=== PATIENT | female | born 1950 | race Caucasian/White ===

== ENCOUNTER 2017-05-06 10:15 | Day surgery (SDC) | payer MEDICARE, OTHER, SELFPAY ==
[2017-04-30 15:33] VITALS: BMI 21.2
[2017-05-06] VITALS (9 sets, daily range): BP systolic 94–120; BP diastolic 57–69; PULSE 83–105; RESP 18; TEMP 36.1–36.7; O2SAT 97–100
--- NOTE | 2017-05-06 11:00 | P.PN_ITS ---
[facility] Anesthesia Checklist - Patient Identification Patient Identification: Arm Band - Structural Data Admitted From: Home Planned Operative Procedure/s: colonoscopy Consent for Planned Operative Procedure(s) Verified: Yes Verified Documents: Surgical Consent - NPO Status Verified Time NPO: 00:00 - Additional verifications Anesthesia Reactions: Yes (PONV) - Airway Assessment C-Spine Mobility Assessed: Yes TMJ Mobility Assessed: Yes Dentition: Good Dentition - Neurological Assessment Level of Consciousness: Awake, Alert - Anesthesia Plan Anesthesia Risk discussed: Yes Anesthesia Plan: Verified ASA Class: III Anesthesia Type: MAC [facility] Anesthesia HX I have reviewed the patient's past medical history: Yes Medical History: Reports:: Asthma, Gastroesophageal Reflux Disease(GERD), Hyperlipidemia, Hypertension, Lung Disease (sarcoidosis) Denies:: Diabetes Mellitus Type 1, Diabetes Mellitus Type 2, Internal Pacemaker, Seizures Laterality Cases: Right: Mastectomy Other Surgeries: Yes: Cardiac Catheterization, Colon Resection, Hysterectomy- Total. No: Pacemaker
--- NOTE | 2017-05-06 12:29 | P.PCN_ITS ---
[facility] Procedure Note Procedure Note:: Colonoscopy Procedure Report: Colonoscopy Endoscopist: Juan Whitfield II, MD Referring physician: Sergio Ulloa MD Date of Procedure: May 06, 2017 Equipment: Olympus 180 variable stiffness pediatric colonoscope Sedation: MAC sedation Indication: Mrs. Sinha is a 66-year-old female who is here for follow-up screening/surveillance colonoscopy. The patient did have an advanced adenoma with dysplasia requiring right hemicolectomy or resection. This was 4 years ago. Her last colonoscopy was 2.[address] Martin and was normal. She reports no abdominal pain, weight loss, change in her bowel habits or rectal bleeding. She reports no family history of colon cancer. Procedure: Prior to the procedure, a history and physical exam was performed, and patient' s medications and allergies were reviewed. The risks, benefits and alternatives of the sedation and procedure were discussed with the patient. All questions were answered and informed consent was obtained. The patient was brought to the procedure room. Patient identification and proposed procedure were verified by the physician and the nurse. The patient was placed in a left lateral decubitus position and the scope was passed under direct vision. Throughout the procedure, the patient's blood pressure, pulse, and oxygen saturations were monitored continuously. The colonoscopy was accomplished without difficulty. The patient tolerated the procedure well. Findings: On digital rectal examination there was normal rectal tone. There were no external hemorrhoids. The colonoscope was introduced through the anal canal to the rectum and advanced to the anastomosis (ileocolonic anastomosis). The scope was advanced a short distance into the ileum which appeared grossly normal. The scope was then withdrawn into the colon. The remaining ascending and transverse colon and mucosa were grossly normal. There were scattered diverticuli throughout the descending and sigmoid colon (LEFT colon). The rectum itself was normal. Upon retroflexion within the rectum there were grade 1 internal hemorrhoids. Impression: 1. Mild pandiverticulosis 2. Normal-appearing anastomosis 3. Grade 1 internal hemorrhoids Plan: I will recommend repeat screening/surveillance colonoscopy again in 5 years. I would encourage fiber supplementation on a long-term daily maintenance basis.
== END 2017-05-06 13:30 | disposition home or self-care (01) ==
LOC: OUTP 10:16
PROVIDERS: PCP Family Medicine; Visit Provider Internal Medicine Gastroenterology
PROC: 0DJD8ZZ Inspection of Lower Intestinal Tract, Via Natural or Artificial Opening Endoscopic (ICD-10-PCS; CPT 45378; principal; 2017-05-06 11:30)
DX: Z12.11 Encounter for screening for malignant neoplasm of colon (principal); K57.30 Diverticulosis of large intestine without perforation or abscess without bleeding; K64.0 First degree hemorrhoids
CPT/HCPCS: G0121

== ENCOUNTER → 2017-06-05 13:02 | Outpatient (POV) | payer MEDICARE, OTHER, SELFPAY | PROVIDERS: PCP Family Medicine | DX: Z00.00 Encounter for general adult medical examination without abnormal findings (principal) ==

== ENCOUNTER → 2017-10-03 08:08 | Outpatient (CLI) | payer MEDICARE, OTHER, SELFPAY ==
--- NOTE | 2017-10-03 12:19 | MM_ITS ---
MM Dig SC mamm unilat LT CAD CAD Screening COMPARISON: Digital left mammogram with CAD 09/08/2015 and 09/10/2016 INDICATION: There is been previous right mastectomy. There is a history of breast cancer patient's mother diagnosed in her 80s. TECHNIQUE: Standard CC and MLO images were obtained. R2 CAD reviewed. FINDINGS: Mild to moderate fibroglandular densities are seen in the subareolar region and central portion of the breast. There is a benign-appearing calcification noted. There is no suspicious lesion and there are no suspicious microcalcifications. IMPRESSION: Stable exam with no suspicious lesion seen recommend yearly follow-up BI-RADS Category: 2 Benign Finding(s) RECOMMENDED FOLLOW-UP: 1YR - 1 YEAR FOLLOW-UP (A letter has been sent to the patient regarding results of the study.)
== END ==
PROVIDERS: PCP Family Medicine; Visit Provider Family Medicine
DX: Z12.31 Encounter for screening mammogram for malignant neoplasm of breast (principal)
CPT/HCPCS: 77067

== ENCOUNTER → 2018-01-29 14:11 | Outpatient (POV) | payer MEDICARE, OTHER, SELFPAY | DX: Z00.00 Encounter for general adult medical examination without abnormal findings (principal) ==

== ENCOUNTER → 2018-05-14 14:00 | Outpatient (POV) | payer MEDICARE, OTHER, SELFPAY | DX: Z00.00 Encounter for general adult medical examination without abnormal findings (principal) ==

== ENCOUNTER 2018-07-21 13:06 | Outpatient (RCR) | payer MEDICARE, OTHER, SELFPAY | END 2018-09-26 13:14 | disposition home or self-care (01) | LOC: PULREHAB 13:06 | DX: D86.9 Sarcoidosis, unspecified (principal) | CPT/HCPCS: 93798; G0237; G0238; G0239; G0424 ==

== ENCOUNTER → 2018-08-22 09:33 | Outpatient (CLI) | payer MEDICARE, OTHER, SELFPAY ==
[2018-08-22 10:00] VITALS: BP 130/75; BP 136/73; PULSE 103; PULSE 73; RESP 20; RESP 24; O2SAT 93; O2SAT 97
== END ==
PROVIDERS: PCP Family Medicine; Visit Provider Family Medicine
DX: D86.0 Sarcoidosis of lung (principal); R09.02 Hypoxemia
CPT/HCPCS: 94618

== ENCOUNTER → 2018-11-11 10:13 | Outpatient (CLI) | payer MEDICARE, OTHER, SELFPAY ==
--- NOTE | 2018-11-11 10:16 | MM_ITS ---
PROCEDURE: MM DIG SC MAMM UNILAT LT CAD CLINICAL INDICATION: H/O RT BREAST CANCER, SCREENING LT BREAST there is a history of breast cancer in patient's mother diagnosed after menopause. There has been previous right mastectomy and breast reduction surgery left breast COMPARISON: [facility] DIG MAMM-SCREENING UNI-LT from 09/08/2015 [facility] DIG MAMM-SCREEN UNI-LT W/CAD from 09/10/2016 [facility] MM Dig SC mamm unilat LT CAD from 10/03/2017 TECHNIQUE: Standard CC and MLO images were obtained. R2 CAD reviewed. FINDINGS: Moderate fibroglandular densities are seen in the subareolar region of the breasts unchanged from previous exams. There is a benign-appearing calcification again noted. There is no new or suspicious lesion on the no suspicious microcalcifications. IMPRESSION: Stable exam with no suspicious lesions seen BI-RAD Category: 1 Negative FOLLOW-UP: 1YR 1 Year Follow-up (A letter has been sent to the patient regarding results of the study.) Dictated by: Dr. Kevyn Wolff MD 12/03/2018 08:[address] Kevyn Wolff MD in [place] 12/03/2018 08:50
--- NOTE | 2018-11-11 10:17 | XR_ITS ---
PROCEDURE: XR DEXA AXIAL SKELETON CLINICAL HISTORY: POST MENOPAUSAL COMPARISON: No exams were available for comparison TECHNIQUE: FINDINGS: The L1-L4 density has a bone density 1.203 grams/centimeters sq with a T-score of 0.2. Left femoral neck density is 0.798 grams/centimeters sq with T-score -1.7. IMPRESSION: Osteopenia with moderate fracture risk. Treatment advised. Suggest follow-up exam in 2 years Dictated by: Newton Knox MD 11/11/2018 11:02 Signed by: <Electronically signed by Newton Knox MD in [place]> 11/11/2018 11:02
== END ==
PROVIDERS: PCP Family Medicine; Visit Provider Family Medicine
DX: Z78.0 Asymptomatic menopausal state; Z85.3 Personal history of malignant neoplasm of breast; Z12.31 Encounter for screening mammogram for malignant neoplasm of breast
CPT/HCPCS: 77067; 77080

== ENCOUNTER → 2019-01-28 13:24 | Outpatient (POV) | payer MEDICARE, OTHER, SELFPAY | DX: Z00.00 Encounter for general adult medical examination without abnormal findings (principal) ==

== ENCOUNTER → 2019-02-19 08:03 | Outpatient (CLI) | payer MEDICARE, OTHER, SELFPAY ==
--- NOTE | 2019-02-19 08:05 | US_ITS ---
PROCEDURE: US ABDOMEN LIMITED CLINICAL INDICATION: EPIGASTRIC PAIN Belching, fullness [facility] FINDINGS: PANCREAS: Unremarkable. No obvious mass or abnormal fluid collection. No ductal dilatation LIVER: No focal liver lesions demonstrated. Homogeneous echogenicity. No intrahepatic biliary ductal dilatation evident. There is appropriate direction of blood flow within a non dilated portal vein RIGHT KIDNEY: There is increased echogenicity in the lower pole of the right kidney with posterior acoustical shadowing suggesting a renal stone. No hydronephrosis. There is mild cortical thinning GALLBLADDER: No gallstones, gallbladder wall thickening, pericholecystic fluid, or biliary dilatation. Probable small right pleural effusion. IMPRESSION: 1. Suspect small right pleural effusion. 2. Possible right nephrolithiasis. 3. Unremarkable gallbladder Dictated by: Newton Knox MD 02/19/2019 17:53 Electronically signed by Newton Knox MD in [place] 02/19/2019 17:53
--- NOTE | 2019-02-19 08:05 | FL_ITS ---
PROCEDURE: FL UPPER GI W AIR CLINICAL INDICATION: EPIGASTRIC PAIN COMPARISON: [facility] CT CHEST W/WO CONTRAST from 01/11/2017 TECHNIQUE: FLUOROSCOPY TIME : 1 minutes and 37 seconds FINDINGS: Small to medium-sized hiatal hernia is noted. No ulcer or mass is apparent. The upper esophagus is slightly situated toward the right and could be related to some scarring in the right upper lobe with mediastinal shift in this patient with history of sarcoidosis and pulmonary fibrosis IMPRESSION: Small to medium-sized hiatal hernia Mild deviation of the esophagus toward the right. This did have a similar appearance on a CT scan 01/11/2017 Dictated by: Newton Knox MD 02/19/2019 14:56 Electronically signed by Newton Knox MD in [place] 02/19/2019 14:56
== END ==
PROVIDERS: PCP Family Medicine; Visit Provider Family Medicine
DX: R10.13 Epigastric pain (principal)
CPT/HCPCS: 74247; 76705

== ENCOUNTER → 2019-02-25 10:20 | Outpatient (CLI) | payer MEDICARE, OTHER, SELFPAY ==
--- NOTE | 2019-02-25 10:29 | NM_ITS ---
PROCEDURE: NM HEPATOBILIARY W PHARM CLINICAL INDICATION: EPIGASTRIC PAIN COMPARISON: No exams were available for comparison TECHNIQUE: DOSE: 7.63 mCi technetium Choletec. 1.1 mcg CCK. No pain reported with CCK infusion FINDINGS: Homogeneous activity is present within the hepatic parenchyma. Activity is present in the gallbladder by 10 minutes. Activity is present in the small bowel by 30 minutes. The gallbladder ejection fraction is calculated to be 85 percent. CCK-The patient did not report pain or other symptoms during CCK infusion. IMPRESSION: Unremarkable exam. No evidence of common or cystic duct obstruction with normal gallbladder ejection Dictated by: Newton Knox MD 02/25/2019 19:09 Electronically signed by Newton Knox MD in [place] 02/25/2019 19:09
== END ==
PROVIDERS: PCP Family Medicine; Visit Provider Family Medicine
DX: R10.13 Epigastric pain (principal)
CPT/HCPCS: 78227; A9537; J2805

== ENCOUNTER 2019-02-27 06:40 | Inpatient (IN) ==
--- NOTE | 2019-02-27 07:40 | History & Physical Report ---
*Admission Date: 02/27/19 *Chief complaint: Shortness of breath *History of present illness: 68-year-old female presented to the emergency department for the third time in a week this morning although this time her complaint was different. Her previous 2 complaints had been loss of appetite. Today she presented with shortness of breath and chills that had developed yesterday evening and had progressed through the night. Patient does not believe she has had fevers. Patient was actually scheduled for an EGD this morning for work-up of her nausea. In the emergency department patient's white blood cell count was low and a chest x-ray showed chronic changes consistent with fibrosis from her pulmonary sarcoidosis but a right lower lobe infiltrate. As patient was in-house and in the preop area awaiting her EGD I assessed the patient there. Patient was tachypneic with a respiratory rate in the mid 20s, pulse rate in the 130s, O2 sat of 88% on room air with an increased to 93 to 94% with application of 2 L/min of oxygen via nasal cannula. Patient had rales in the right lower lung best heard laterally. Cough was dry. Decision was made to admit the patient for IV antibiotics. EGD will be canceled and possibly reattempted on Saturday. [facility] History I have reviewed the patient's past medical history: Yes Medical History: Reports:: Asthma, Cancer (Right mastectomy), Gastroesophageal Reflux Disease(GERD), Hyperlipidemia, Hypertension, Lung Disease (Sarcoidosis with pulmonary fibrosis), Kidney Stones Denies:: Diabetes Mellitus Type 1, Diabetes Mellitus Type 2, Internal Pacemaker, MRSA, Seizures *Have you ever received a pneumonia vaccine?: Yes *Have you received a flu vaccine this season?: Yes Laterality Cases: Right: Mastectomy, Bilateral: Tonsillectomy Other Surgeries: Yes: Appendectomy, Cardiac Catheterization, Colonoscopy, Colon Resection, Hysterectomy-Total, Other. No: Pacemaker Amputation: No Fractures: No - *Social History Educational Level: Completed High School Smoking Status: Never smoker Alcohol Intake: never Alcohol Intake Frequency:: holidays/special occasions only Substance Use Type: denies use *Occupational Status:: retired Housing: house Household Members: spouse *Travel in the last 8 weeks: None Family Hx:: Unable to obtain Review of Systems - Constitutional Reports anorexia, Reports body ache(s), Reports chills, Reports fatigue, Reports headache(s), Reports malaise, Reports weakness, Reports weight loss, Denies fever(s) - *Cardiovascular Denies chest pain, Denies chest pain at rest, Denies chest pain with activity - *Respiratory Reports chest congestion, Reports cough, Reports shortness of breath, Denies change in phlegm color - *Gastrointestinal Reports abdominal pain, Reports difficulty swallowing, Reports nausea - *Genitourinary Denies abnormal periods Meds Home Medications Medication Instructions Recorded Confirmed Type Albuterol Sulfate [Proair Hfa 2 puffs IH Q4HP PRN 04/30/17 02/27/19 History 90mcg/puff Inh] Amlodipine Besylate [Amlodipine 10 mg PO DAILY 04/30/17 02/27/19 History 10mg Tab] Atorvastatin Calcium [Atorvastatin 20 mg PO DAILY 04/30/17 02/27/19 History 20mg Tab] Montelukast Sodium [Montelukast 10 mg PO HS 04/30/17 02/27/19 History 10mg Tab] Omeprazole [Omeprazole 20mg 20 mg PO DAILY 04/30/17 02/27/19 History Capsule] buspirone 10 mg tablet 10 mg PO BID PRN 08/27/17 02/27/19 History calcium citrate 200 mg (950 mg) 600 mg PO BID tab 08/27/17 02/27/19 History tablet alendronate 70 mg tablet 70 mg PO QWEEK 84 Days #12 tab 02/25/18 02/27/19 History azathioprine 50 mg tablet 50 mg PO BID 30 Days #60 tab 02/25/18 02/27/19 History Ondansetron [Zofran 4mg ODT] 4 mg PO TIDP PRN #10 tab.rapdis 02/26/19 02/27/19 Rx Allergies Allergy/AdvReac Type Severity Reaction Status Date / Time No Known Allergies Allergy Verified 02/27/19 07:07 Exam Vital signs and Labs for Last 24 Hours: Temp Pulse Resp BP Pulse Ox 99.2 F 126 H 24 119/58 L 94 L 02/27/19 07:08 02/27/19 07:08 02/27/19 07:08 02/27/19 07:08 02/27/19 07:08 I & O for Last 24 hours: Intake & Output 12/10/02/25/19 02/26/19 02/27/19 11:59 11:59 11:59 11:59 Weight 125 lb Narrative: Patient shows increased respiratory effort. She is thin. Pupils are reactive to light. Oropharynx is moist. Neck is without lymphadenopathy or carotid bruits. Lungs have diminished breath sounds throughout with rales at the right posterior lateral lung base. Heart is tachycardic. Abdomen is soft and nontender. Bowel sounds are present. Extremities have no edema. Neurologically there is no deficit. Skin is without rashes. Assessment and Plan (1) Right lower lobe pneumonia Current visit: Yes Status: Acute Category: Medical Code(s): J18.9 - Pneumonia, unspecified organism (2) Hyperlipidemia Current visit: Yes Status: Acute Category: Medical Code(s): E78.5 - Hyperlipidemia, unspecified (3) Pulmonary fibrosis Current visit: Yes Status: Chronic Category: Medical Code(s): J84.10 - Pulmonary fibrosis, unspecified (4) Abdominal pain Current visit: No Status: Acute Qualifiers: Abdominal location: right upper quadrant Qualified Code(s): R10.11 - Right upper quadrant pain Category: Medical Code(s): R10.9 - Unspecified abdominal pain (5) Appetite loss Current visit: No Status: Acute Category: Medical Code(s): R63.0 - Anorexia (6) Nausea Current visit: No Status: Acute Category: Medical Code(s): R11.0 - Nausea (7) Sarcoidosis Current visit: No Status: Chronic Category: Medical Code(s): D86.9 - Sarcoidosis, unspecified
--- NOTE | 2019-02-27 07:56 | Pharmacy Consult Notes ---
[facility] Pharmacy VTE Monitoring - Patient Demographics Admission date: 02/27/19 Report Date: 02/27/19 Time: 07:56 Allergies/Adverse Reactions: Patient Allergies No Known Allergies Allergy (Verified 02/27/19 07:07) Height: 1.6 m Weight: 56.699 kg Patient Problems: Current Active Problems Right lower lobe pneumonia (Acute) Hyperlipidemia (Acute) Pulmonary fibrosis (Chronic) - Prophylaxis VTE Prophylaxis Ordered?: Yes Types of VTE Prophylaxis: TEDS Knee High Location of Applied Device: Bilateral Lower Extremeties - VTE Diagnosis Confirmed Treatment or plan recommended: Continue Current Treatment
[2019-02-27 08:37] LABS: ABG Base Excess -9.5 mmol/L (-2.4-2.3); ABG HCO3 17.2 mmhg (22.0-26.0); ABG Oxygen Saturation 96 % (90-100); ABG PCO2 37.1 mmhg (35.0-45.0); ABG PH 7.28 mmol/L (7.35-7.45); ABG PO2 83.7 mmhg (80-100); ABG TCO2 18.3 mmhg (23-27)
[2019-02-27 08:40] LABS: Oxygen 2LPM %
--- NOTE | 2019-02-28 07:20 | Progress Note ---
Internal Medicine - PN: Subj *Date: 02/28/19 *Time: 07:17 Interval history: Patient had a low-grade fever overnight that responded to Tylenol. Nursing staff reports patient did well except for when ambulating to and from the bathroom. At that point O2 sats dropped into the mid 80s. Sats recovered as did patient's breathlessness when she was at rest again. Respiratory therapy has told me this morning that the patient has a wheezing sound coming from the central upper airway that has not changed with use of aerosols. Exam Vital signs and Labs for Last 24 Hours: Temp Pulse Resp BP Pulse Ox 97.7 F 106 H 20 112/58 L 97 02/28/19 04:00 02/28/19 06:20 02/28/19 04:00 02/28/19 04:00 02/28/19 06:20 Laboratory Results - last 24 hr 02/27/19 07:30: Specimen Source L brachial, O2 % 2lpm, ABG pH 7.28 L, ABG pCO2 37.1, ABG pO2 83.7, ABG HCO3 17.2 L, ABG Total CO2 18.3 L, ABG O2 Saturation 96, ABG Base Excess -9.5 L 02/27/19 09:45: Mycoplasma pneumon IgM Reactive A 02/27/19 10:30: Influenza Type A Ag Negative, Influenza Type B Ag Negative I & O for Last 24 hours: Intake & Output 02/25/19 02/26/19 02/27/19 02/28/19 11:59 11:59 11:59 11:59 Intake Total 120 / 120 2492 / 2492 Output Total 800 / 800 Balance 120 / 120 1692 / 1692 Weight 130 lb 9 oz Microbiology Reports for the Last 24 Hours: Microbiology 02/27/19 18:35 Sputum - Expectorated Sputum Gram Stain - Final - Constitutional Comments: Patient is tachypneic and requires frequent reminder to inhale through her nose and exhale through pursed lips. - *Routine Respiratory Exam Comments: There is poor inspiratory effort and rales in the right base. No expiratory wheezes peripherally. Patient has some central wheezing that clears with cough or clearing of the throat - *Routine Cardiovascular Exam Present: Normal S1, Normal S2, tachycardia - *Routine Abdominal Exam Present: soft, normoactive bowel sounds Assessment and Plan (1) Right lower lobe pneumonia Current visit: Yes Status: Acute Category: Medical Code(s): J18.9 - Pneumonia, unspecified organism (2) Hyperlipidemia Current visit: Yes Status: Acute Category: Medical Code(s): E78.5 - Hyperlipidemia, unspecified (3) Pulmonary fibrosis Current visit: Yes Status: Chronic Category: Medical Code(s): J84.10 - Pulmonary fibrosis, unspecified (4) Abdominal pain Current visit: No Status: Acute Qualifiers: Abdominal location: right upper quadrant Qualified Code(s): R10.11 - Right upper quadrant pain Category: Medical Code(s): R10.9 - Unspecified abdominal pain (5) Appetite loss Current visit: No Status: Acute Category: Medical Code(s): R63.0 - Anorexia (6) Nausea Current visit: No Status: Acute Category: Medical Code(s): R11.0 - Nausea (7) Sarcoidosis Current visit: No Status: Chronic Category: Medical Code(s): D86.9 - Sarcoidosis, unspecified - Assessment and plan all Dx Assessment and Plan for all problems:: 1. CT of the chest with and without contrast today 2. I am going to add some steroids to see if that helps with patient's pneumonia. 3. Supplemental oxygen for comfort and to keep sats in the mid 90s
[2019-02-28 07:50] LABS: Basophils # 0.1 K/mm3 (0-0.2); Basophils % 1.1 % (0.1-2.0); Eosinophils # 0.1 K/mm3 (0.0-0.4); Eosinophils % 2.3 % (0.1-12.0); Hematocrit 38.8 % (37.0-47.0); Hemoglobin 12.7 g/dL (12.2-16.2); Lymphocytes # 0.5 K/mm3 (0.7-4.5); Lymphocytes % 11.4 % (10-50); Mean Corpuscular HGB Conc 32.6 g/dL (31.8-35.4); Mean Corpuscular Volume 90.9 fl (81-99); Mean Platelet Volume 9.3 fl (7.4-10.4); Monocytes # 0.8 K/mm3 (0.1-1.0); Monocytes % 17.2 % (1.7-9.3); Platelet Count 362 K/mm3 (142-424); Red Blood Count 4.27 M/mm3 (4.20-5.40); Red Cell Distribution Width 13.9 % (11.5-17.5); White Blood Count 4.4 K/mm3 (4.8-10.8)
[2019-02-28 09:47] LABS: Albumin Level 2.7 gm/dL (3.4-5.0); Albumin/Globulin Ratio 0.7 (1.1-1.8); Bilirubin,Total 0.4 mg/dL (0.2-1.0); Calcium 7.4 mg/dL (8.5-10.1); Globulin 3.7 gm/dl (1.3-3.2); Total Protein,Serum 6.4 gm/dL (6.4-8.2)
--- NOTE | 2019-03-01 08:19 | Progress Note ---
Internal Medicine - PN: Subj *Date: 03/01/19 *Time: 08:15 Interval history: Patient reports feeling better this morning. Shortness of breath is improving. Cough feels "looser" but she has not produced any sputum yet. CT scan of the chest yesterday showed multiple patchy infiltrates throughout the right lung, a right pleural effusion, and the chronic fibrotic changes of the lungs from her sarcoidosis. Exam Vital signs and Labs for Last 24 Hours: Temp Pulse Resp BP Pulse Ox 97.7 F 100 H 18 132/78 96 03/01/19 04:00 03/01/19 06:14 03/01/19 04:00 03/01/19 04:00 03/01/19 06:14 Laboratory Results - last 24 hr 02/28/19 07:10: Sodium 142, Potassium 4.0, Chloride 107, Carbon Dioxide 23 D, Anion Gap 16.0 H, BUN 7 D, Creatinine 0.81 D, Estimated Creat Clear 52, Estimated GFR 71, Est GFR ( Amer) 86 D, Glucose 125 H, Calcium 7.4 L, Total Bilirubin 0.4, AST 33, ALT 18, Alkaline Phosphatase 97, Total Protein 6.4, Albumin 2.7 L D, Globulin 3.7 H, Albumin/Globulin Ratio 0.7 L 02/28/19 10:00: B-Natriuretic Peptide 55 I & O for Last 24 hours: Intake & Output 02/26/19 02/27/19 02/28/19 03/01/19 11:59 11:59 11:59 11:59 Intake Total 120 / 120 2612 / 2612 2844 / 2844 Output Total 800 / 800 2049 / 2049 Balance 120 / 120 1812 / 1812 794 / 794 Weight 130 lb 9 oz 131 lb 9 oz Narrative: Patient appears much more comfortable this morning with normal respirations and no increased work of breathing. Lung exam reveals improved aeration on the right with rales heard in the lateral and posterior chest on the right. Heart has a regular rate and rhythm Assessment and Plan (1) Right lower lobe pneumonia Current visit: Yes Status: Acute Category: Medical Code(s): J18.9 - Pneumonia, unspecified organism (2) Hyperlipidemia Current visit: Yes Status: Acute Category: Medical Code(s): E78.5 - Hyperlipidemia, unspecified (3) Pulmonary fibrosis Current visit: Yes Status: Chronic Category: Medical Code(s): J84.10 - Pulmonary fibrosis, unspecified (4) Abdominal pain Current visit: No Status: Acute Qualifiers: Abdominal location: right upper quadrant Qualified Code(s): R10.11 - Right upper quadrant pain Category: Medical Code(s): R10.9 - Unspecified abdominal pain (5) Appetite loss Current visit: No Status: Acute Category: Medical Code(s): R63.0 - Anorexia (6) Nausea Current visit: No Status: Acute Category: Medical Code(s): R11.0 - Nausea (7) Sarcoidosis Current visit: No Status: Chronic Category: Medical Code(s): D86.9 - Sarcoidosis, unspecified - Assessment and plan all Dx Assessment and Plan for all problems:: 1. Continue Rocephin and azithromyciN. Continue IV steroids. Patient has no wheezing so I will make her breathing treatments as needed 2. Encourage patient to ambulate today
--- NOTE | 2019-03-02 07:27 | Progress Note ---
Internal Medicine - PN: Subj *Date: 03/02/19 *Time: 07:25 Interval history: Patient feels better with improvement in her shortness of breath and cough continues to loosen. However she is still not producing sputum. Nursing staff reports patient asked for Phenergan for nausea overnight and she did develop some air hunger with ambulation to and from the bathroom requiring some morphine. Patient has been n.p.o. since midnight for GI evaluation. Exam Vital signs and Labs for Last 24 Hours: Temp Pulse Resp BP Pulse Ox 97.8 F 88 20 127/76 96 03/02/19 00:00 03/02/19 06:18 03/02/19 00:00 03/02/19 00:00 03/02/19 06:18 I & O for Last 24 hours: Intake & Output 02/27/19 02/28/19 03/01/19 03/02/19 11:59 11:59 11:59 11:59 Intake Total 120 / 120 2612 / 2612 3084 / 3084 1983 / 1983 Output Total 800 / 800 2049 / 0 1550 / 1550 Balance 120 / 120 1812 / 1812 1034 / 1034 434 / 434 Weight 130 lb 9 oz 131 lb 9 oz Microbiology Reports for the Last 24 Hours: Microbiology 02/27/19 09:45 Blood Blood Culture - Preliminary NO GROWTH AFTER 48 HOURS 02/27/19 09:45 Blood Blood Culture - Preliminary NO GROWTH AFTER 48 HOURS Narrative: Patient appears comfortable. On exam she has rhonchi in the right chest heard best anteriorly but audible posteriorly as well. Left lung is clear. Abdomen is soft and nontender. Heart has a regular rate and rhythm. Assessment and Plan (1) Right lower lobe pneumonia Current visit: Yes Status: Acute Category: Medical Code(s): J18.9 - Pneumonia, unspecified organism (2) Hyperlipidemia Current visit: Yes Status: Acute Category: Medical Code(s): E78.5 - Hyperlipidemia, unspecified (3) Pulmonary fibrosis Current visit: Yes Status: Chronic Category: Medical Code(s): J84.10 - Pulmonary fibrosis, unspecified (4) Abdominal pain Current visit: No Status: Acute Qualifiers: Abdominal location: right upper quadrant Qualified Code(s): R10.11 - Right upper quadrant pain Category: Medical Code(s): R10.9 - Unspecified abdominal pain (5) Appetite loss Current visit: No Status: Acute Category: Medical Code(s): R63.0 - Anorexia (6) Nausea Current visit: No Status: Acute Category: Medical Code(s): R11.0 - Nausea (7) Sarcoidosis Current visit: No Status: Chronic Category: Medical Code(s): D86.9 - Sarcoidosis, unspecified - Assessment and plan all Dx Assessment and Plan for all problems:: 1. Continue IV antibiotics 2. PT and OT eval's today 3. Dr. Whitfield is been consulted for evaluation of her anorexia and epigastric abdominal pain. Patient has had a negative gallbladder work-up.
--- NOTE | 2019-03-02 09:00 | Progress Note ---
Internal Medicine - PN: Subj *Date: 03/02/19 *Time: 09:00 Exam Vital signs and Labs for Last 24 Hours: Temp Pulse Resp BP Pulse Ox 97.8 F 85 20 124/68 97 03/02/19 08:00 03/02/19 08:00 03/02/19 08:00 03/02/19 08:00 03/02/19 08:00 I & O for Last 24 hours: Intake & Output 02/27/19 02/28/19 03/01/19 03/02/19 23:59 23:59 23:59 23:59 Intake Total 1277 / 1277 3484 / 3484 3039 / 3039 400 / 400 Output Total 1900 / 1900 2250 / 2250 550 / 550 Balance 1277 / 1077 1584 / 1584 789 / 789 -150 / -150 Weight 59.222 kg 59.676 kg 59.988 kg Microbiology Reports for the Last 24 Hours: Microbiology 02/27/19 09:45 Blood Blood Culture - Preliminary NO GROWTH AFTER 48 HOURS 02/27/19 09:45 Blood Blood Culture - Preliminary NO GROWTH AFTER 48 HOURS Assessment and Plan (1) Right lower lobe pneumonia Current visit: Yes Status: Acute Category: Medical Code(s): J18.9 - Pneumonia, unspecified organism (2) Hyperlipidemia Current visit: Yes Status: Acute Category: Medical Code(s): E78.5 - Hyperlipidemia, unspecified (3) Pulmonary fibrosis Current visit: Yes Status: Chronic Category: Medical Code(s): J84.10 - Pulmonary fibrosis, unspecified (4) Abdominal pain Current visit: No Status: Acute Qualifiers: Abdominal location: right upper quadrant Qualified Code(s): R10.11 - Right upper quadrant pain Category: Medical Code(s): R10.9 - Unspecified abdominal pain (5) Appetite loss Current visit: No Status: Acute Category: Medical Code(s): R63.0 - Anorexia (6) Nausea Current visit: No Status: Acute Category: Medical Code(s): R11.0 - Nausea (7) Sarcoidosis Current visit: No Status: Chronic Category: Medical Code(s): D86.9 - Sarcoidosis, unspecified The patient's infection will respond to the chosen ABx?: Yes Is the patient receiving the right drug, dose, and route?: Yes Could a more targeted ABx be ordered?: No (SPUTUM PENDING. BLOOD CX NEGATIVE)
--- NOTE | 2019-03-02 10:49 | Progress Note ---
[facility] Anesthesia Checklist - Patient Identification Patient Identification: Arm Band - Structural Data Admitted From: Inpatient Planned Operative Procedure/s: egd Consent for Planned Operative Procedure(s) Verified: Yes Verified Documents: Surgical Consent, History and Physical - NPO Status Verified Time NPO: 00:00 - Additional verifications Anesthesia Reactions: Yes (PONV) - Airway Assessment C-Spine Mobility Assessed: Yes (mp2) TMJ Mobility Assessed: Yes Dentition: Good Dentition - Neurological Assessment Level of Consciousness: Awake, Alert - Anesthesia Plan Anesthesia Risk discussed: Yes Anesthesia Plan: Verified ASA Class: III Anesthesia Type: MAC [facility] History I have reviewed the patient's past medical history: Yes Medical History: Reports:: Asthma, Cancer (Right mastectomy), Gastroesophageal Reflux Disease(GERD), Hyperlipidemia, Hypertension, Lung Disease (Sarcoidosis with pulmonary fibrosis), Kidney Stones Denies:: Diabetes Mellitus Type 1, Diabetes Mellitus Type 2, Internal Pacemaker, MRSA, Seizures *Have you ever received a pneumonia vaccine?: Yes *Have you received a flu vaccine this season?: Yes Anesthesia experience/problems:: nac Laterality Cases: Right: Mastectomy, Bilateral: Tonsillectomy Other Surgeries: Yes: Appendectomy, Cardiac Catheterization, Colonoscopy, Colon Resection, Hysterectomy-Total, Other. No: Pacemaker Amputation: No Fractures: No - *Social History Educational Level: Completed High School Smoking Status: Never smoker Alcohol Intake: never Alcohol Intake Frequency:: holidays/special occasions only Substance Use Type: denies use *Occupational Status:: retired Housing: house Household Members: spouse *Travel in the last 8 weeks: None Family Hx:: Hyperlipidemia, Hypertension, Kidney Disease, Stroke
--- NOTE | 2019-03-02 11:43 | Procedure Note ---
[facility] Procedure Note Procedure Note:: Upper Endoscopy Procedure Report: Esophagogastroduodenoscopy with cold biopsies Endoscopost: Juan Whitfield II, MD Referring Physician: Sergio Ulloa MD Date of Procedure: March 02, 2019 Equipment: Olympus GIF 180 standard upper endoscope Sedation: MAC sedation Indications: Mrs. Sinha is a 68-year-old female with anorexia and no appetite. She has had some belching, gassiness and minor bloating. She reports early satiety. She is lost 9 pounds. The patient does have a history of pulmonary sarcoidosis with pulmonary fibrosis. She was admitted with right lower lobe infiltrate/pneumonia. The patient has had CT scan of the abdomen and chest, ultrasound and HIDA scan. She also had an upper GI series on February 19, 2019 and had a small to medium sized hiatal hernia. The patient initially had some right upper quadrant pain radiating into the back. She has had some light- colored stools and minor heartburn. The patient had been on Remicade and azathioprine for her sarcoidosis. The patient has a history of a right hemicolectomy after resection of an advanced adenoma. She did have a colonoscopy with me in April 2017 and had a normal anastomosis. She has had a low-grade temperature. The patient also has had some elevation of her liver chemistries initially but these have returned to normal. She is not anemic and has normal hemoglobin/hematocrit and white blood cell count. The patient has no abdominal pain. Procedure: Prior to the procedure, a history and physical exam was performed, and patient's medications and allergies were reviewed. The risks, benefits and alternatives of the sedation and procedure were discussed with the patient. All questions were answered and informed consent was obtained. The patient was brought to the procedure room. Patient identification and proposed procedure were verified by the physician and the nurse. The patient was placed in a left lateral decubitus position and the scope was passed under direct vision. Throughout the procedure, the patient's blood pressure, pulse, and oxygen saturations were monitored continuously. The upper GI endoscopy was accomplished without difficulty. The patient tolerated the procedure well. Findings: The scope was passed directly into the upper esophagus and advanced to the third portion of the duodenum. The post bulbar duodenum and duodenal bulb were normal with normal mucosa and conniventes. The scope was withdrawn through a normal duodenal bulb and pylorus into the stomach. There was a very mild linear reactive gastropathy with bile reflux. The remainder of the antrum, body and fundus of the stomach were grossly normal. Upon retroflexion there was a medium sized 3 cm hiatal hernia. 2 biopsies were taken in the antrum and along the lesser curvature for histology to rule out gastritis and/or H pylori. The scope was then withdrawn into the esophagus. There was no evidence of reflux esophagitis or Carrasquillo's. There was mild tertiary contractions and mild dysmotility. The remainder of the esophageal mucosa was normal. Impression: 1. Nonerosive GERD with mild esophageal dysmotility and small 3 cm hiatal hernia 2. Very mild linear reactive gastropathy with bile reflux Plan: I will discuss the findings with patient and family. I will follow-up the biopsies. We will discuss treatment options.
--- NOTE | 2019-03-03 07:06 | Progress Note ---
Internal Medicine - PN: Subj *Date: 03/03/19 *Time: 07:04 Interval history: Patient complains of frequent bowel movements that are loose and believes it is due to the azithromycin. She denies abdominal pain. She had EGD yesterday which showed some bowel reflux gastropathy. Biopsies were taken. Patient has been placed on a bowel regimen by Dr. Whitfield. Patient reports feeling better. Cough is loosening. Exam Vital signs and Labs for Last 24 Hours: Temp Pulse Resp BP Pulse Ox 97.8 F 87 20 138/70 94 L 03/03/19 04:00 03/03/19 06:04 03/03/19 04:00 03/03/19 04:00 03/03/19 06:04 I & O for Last 24 hours: Intake & Output 02/28/19 03/01/19 03/02/19 03/03/19 11:59 11:59 11:59 11:59 Intake Total 2612 / 2612 3084 / 3084 2384 / 2384 209 / 2094 Output Total 800 / 800 2049 / 2049 2350 / 2350 1999 / 1999 Balance 1812 / 1812 1034 / 1034 34 / 34 94 / 94 Weight 131 lb 9 oz 132 lb 4 oz 130 lb 8 oz Narrative: Patient looks well and shows no signs of respiratory distress. Lung exam reveals improved aeration with scattered rhonchi both right and left-sided. Rhonchi on right are less audible than on previous exams Assessment and Plan (1) Right lower lobe pneumonia Current visit: Yes Status: Acute Category: Medical Code(s): J18.9 - Pneumonia, unspecified organism (2) Hyperlipidemia Current visit: Yes Status: Acute Category: Medical Code(s): E78.5 - Hyperlipidemia, unspecified (3) Pulmonary fibrosis Current visit: Yes Status: Chronic Category: Medical Code(s): J84.10 - Pulmonary fibrosis, unspecified (4) Abdominal pain Current visit: No Status: Acute Qualifiers: Abdominal location: right upper quadrant Qualified Code(s): R10.11 - Right upper quadrant pain Category: Medical Code(s): R10.9 - Unspecified abdominal pain (5) Appetite loss Current visit: No Status: Acute Category: Medical Code(s): R63.0 - Anorexia (6) Nausea Current visit: No Status: Acute Category: Medical Code(s): R11.0 - Nausea (7) Sarcoidosis Current visit: No Status: Chronic Category: Medical Code(s): D86.9 - Sarco idosis, unspecified - Assessment and plan all Dx Assessment and Plan for all problems:: 1. Change antibiotics from cefepime and azithromycin to levofloxacin for her mycoplasma 2. DC IV fluids 3. Patient will have to be evaluated for home oxygen. She is a possible discharge tomorrow
--- NOTE | 2019-03-04 07:59 | Progress Note ---
Internal Medicine - PN: Subj *Date: 03/04/19 *Time: 07:57 Interval history: Patient has no complaints this morning. She had a coughing spell earlier this morning which was somewhat relieved with use of a nebulizer. Her cough remains loose but with only scant sputum production. Exam Vital signs and Labs for Last 24 Hours: Temp Pulse Resp BP Pulse Ox 98.3 F 109 H 18 154/68 H 92 L 03/04/19 04:00 03/04/19 06:05 03/04/19 04:00 03/04/19 04:00 03/04/19 06:05 I & O for Last 24 hours: Intake & Output 03/01/19 03/02/19 03/03/19 03/04/19 11:59 11:59 11:59 11:59 Intake Total 3084 / 3084 2384 / 2384 2484 / 2484 750 / 750 Output Total 0 / 0 2350 / 2350 2350 / 2350 200 / 200 Balance 1034 / 1034 34 / 34 134 / 134 550 / 550 Weight 131 lb 9 oz 132 lb 4 oz 130 lb 8 oz 126 lb 2 oz Narrative: Patient looks well this morning. Lung exam reveals good aeration with clear lung dan both sides without expiratory wheezes Assessment and Plan (1) Mycoplasma pneumonia Current visit: Yes Status: Acute Category: Medical Code(s): J15.7 - Pneumonia due to Mycoplasma pneumoniae (2) Right lower lobe pneumonia Current visit: Yes Status: Acute Category: Medical Code(s): J18.9 - Pneumonia, unspecified organism (3) Hyperlipidemia Current visit: Yes Status: Acute Category: Medical Code(s): E78.5 - Hyperlipidemia, unspecified (4) Pulmonary fibrosis Current visit: Yes Status: Chronic Category: Medical Code(s): J84.10 - Pulmonary fibrosis, unspecified (5) Abdominal pain Current visit: No Status: Acute Qualifiers: Abdominal location: right upper quadrant Qualified Code(s): R10.11 - Right upper quadrant pain Category: Medical Code(s): R10.9 - Unspecified abdominal pain (6) Appetite loss Current visit: No Status: Acute Category: Medical Code(s): R63.0 - Anorexia (7) Nausea Current visit: No Status: Acute Category: Medical Code(s): R11.0 - Nausea (8) Sarcoidosis Current visit: No Status: Chronic Category: Medical Code(s): D86.9 - Sarcoidosis, unspecified - Assessment and plan all Dx Assessment and Plan for all problems:: Patient will be discharged home today. Due to underlying chronic lung disease I am going to treat the patient for an additional 3 days with levofloxacin. Patient will follow-up in the office in 1 week
--- NOTE | 2019-03-04 08:02 | Discharge Summary ---
General - General Admission date:: 02/27/19 Discharge date: 03/04/19 HPI HPI: 68-year-old female presented to the emergency department for the third time in a week this morning although this time her complaint was different. Her previous 2 complaints had been loss of appetite. Today she presented with shortness of breath and chills that had developed yesterday evening and had progressed through the night. Patient does not believe she has had fevers. Patient was actually scheduled for an EGD this morning for work-up of her nausea. In the emergency department patient's white blood cell count was low and a chest x-ray showed chronic changes consistent with fibrosis from her pulmonary sarcoidosis but a right lower lobe infiltrate. As patient was in-house and in the preop area awaiting her EGD I assessed the patient there. Patient was tachypneic with a respiratory rate in the mid 20s, pulse rate in the 130s, O2 sat of 88% on room air with an increased to 93 to 94% with application of 2 L/min of oxygen via nasal cannula. Patient had rales in the right lower lung best heard laterally. Cough was dry. Decision was made to admit the patient for IV antibiotics. EGD will be canceled and possibly reattempted on Saturday. Hospital Course Hospital Course: Patient was admitted and started on Rocephin and azithromycin for treatment of presumed community-acquired pneumonia. Additional work-up reveals positive mycoplasma antibody. Patient remained on Rocephin and azithromycin for the first 5 days of hospitalization. On day 5 she complained of developing loose stools which she has had in the past when she is used azithromycin. Her azithromycin was changed to Levaquin and Rocephin was discontinued. After 6 days of hospitalization patient's pneumonia had been adequately treated and patient's lung exam had improved. On admission she had had multiple rales in the right lung. On the day of discharge lungs were essentially clear and she had been weaned from all supplemental oxygen use. Early in admission patient required morphine for air hunger. CT scan was performed during hospitalization which showed a pleural effusion as well as the pneumonia but no pulmonary embolism. Patient has chronic lung disease from her sarcoidosis with resulting fibrosis of the lungs. Prior to admission patient had been undergoing a work-up for extreme loss of appetite with nausea. On the day of admission she had actually been planned to have an EGD as an outpatient. This was canceled. After treatment of her pneumonia over the weekend of admission she was well enough to undergo EGD on 03/02. EGD showed some mild bile reflux gastropathy. Dr. Whitfield started the patient on a bowel regimen with BuSpar. Objective Vital signs: Temp Pulse Resp BP Pulse Ox 98.3 F 109 H 18 154/68 H 92 L 03/04/19 04:00 03/04/19 06:05 03/04/19 04:00 03/04/19 04:00 03/04/19 06:05 Results Labs on day of discharge: Preliminary micro results at discharge 02/27/19 09:45 Blood Culture - Preliminary Blood NO GROWTH AFTER 48 HOURS 02/27/19 09:45 Blood Culture - Preliminary Blood NO GROWTH AFTER 48 HOURS DS: Diagnosis - Discharge Diagnosis (1) Mycoplasma pneumonia Status: Acute (2) Right lower lobe pneumonia Status: Acute (3) Hyperlipidemia Status: Acute (4) Pulmonary fibrosis Status: Chronic (5) Abdominal pain Status: Acute (6) Appetite loss Status: Acute (7) Nausea Status: Acute (8) Sarcoidosis Status: Chronic Discharge Plan - Patient Discharge Instructions ACTIVITY: Continue current activity DIET: continue same diet Patient Instructions: High Triglycerides, Atypical Pneumonia, Mycoplasma Titer, DI for Sarcoidosis - Follow up Plan Follow up with: Juan Whitfield MD [Staff Physician] - Marion Montaño APRN [Nurse Practitioner] - 03/30/19 10:15 am Sergio Ulloa MD [Primary Care Provider] - 03/13/19 9:15 am Disposition: Home, Self-[facility] Medications: Home Medications Medication Instructions Recorded Confirmed Type Albuterol Sulfate [Proair Hfa 2 puffs IH Q4HP PRN 04/30/17 02/27/19 History 90mcg/puff Inh] Amlodipine Besylate [Amlodipine 10 mg PO DAILY 04/30/17 02/27/19 History 10mg Tab] Atorvastatin Calcium [Atorvastatin 20 mg PO HS 04/30/17 02/27/19 History 20mg Tab] Montelukast Sodium [Montelukast 10 mg PO HS 04/30/17 02/27/19 History 10mg Tab] Omeprazole [Omeprazole 20mg 20 mg PO DAILY 04/30/17 02/27/19 History Capsule] calcium citrate 200 mg (950 mg) 600 mg PO BID tab 08/27/17 02/27/19 History tablet azathioprine 50 mg tablet 50 mg PO BID 30 Days #60 tab 02/25/18 02/27/19 History Ondansetron [Zofran 4mg ODT] 4 mg PO TIDP PRN #10 tab.rapdis 02/26/19 02/27/19 Rx Alendronate Sodium [Fosamax 70mg 70 mg PO WEEKLY 02/27/19 02/27/19 History Tablet] levoFLOXacin [Levofloxacin 750MG 750 mg PO DAILY #3 tab 03/04/19 Rx Tablet] predniSONE [Prednisone 20mg 20 mg PO DIRECTED #10 tab 03/04/19 Rx Tab] Prescriptions/Medication Reconciliation: New levoFLOXacin [Levofloxacin 750MG Tablet] 750 mg PO DAILY #3 tab predniSONE [Prednisone 20mg Tab] 20 mg PO DIRECTED #10 tab Continued azathioprine 50 mg tablet 50 mg PO BID 30 Days #60 tab calcium citrate 200 mg (950 mg) tablet 600 mg PO BID tab Albuterol Sulfate [Proair Hfa 90mcg/puff Inh] 2 puffs IH Q4HP PRN PRN Reason: Shortness Of Breath Or Wheezing Montelukast Sodium [Montelukast 10mg Tab] 10 mg PO HS Amlodipine Besylate [Amlodipine 10mg Tab] 10 mg PO DAILY Omeprazole [Omeprazole 20mg Capsule] 20 mg PO DAILY Atorvastatin Calcium [Atorvastatin 20mg Tab] 20 mg PO HS Alendronate Sodium [Fosamax 70mg Tablet] 70 mg PO WEEKLY Ondansetron [Zofran 4mg ODT] 4 mg PO TIDP PRN #10 tab.rapdis PRN Reason: Nausea And Vomiting - Problem Reconciliation Problems Reviewed?: Yes
== END 2019-03-04 10:25 | disposition home or self-care (01) | DRG 194 ==
LOC: 2ND 06:40 → OUTP 06:40 → OBSVTOIN 07:29
PROVIDERS: ADMIT Family Medicine; ATTEND Family Medicine
CPT/HCPCS: 36415; 71020; 71046; 71270; 78227; 80053; 81001; 82150; 82803; 83690; 83880; 84484; 85025; 85651; 86140; 86738; 87040; 87070; 87205; 87275; 87276; 88305; 93005; 94640; 94761; 96365; 96366; 96375; 97116; 97161; 97165; 99283; A9537; J0456; J1956; J2405; J2805; Q9967

== ENCOUNTER → 2019-03-09 10:15 | Outpatient (CLI) | payer MEDICARE, OTHER, SELFPAY ==
[2019-03-09 10:26] LABS: Adenovirus,PCR Not Detected (NotDetected); Bordetella Pertussis Not Detected (NotDetected); Chlamydophila Pneumoniae, PCR Not Detected (NotDetected); Coronavirus 229E Not Detected (NotDetected); Coronavirus NL63 Not Detected (NotDetected); Coronavirus OC43 Not Detected (NotDetected); Coronovirus HKU1,PCR Not Detected (NotDetected); Human Metapneumovirus Not Detected (NotDetected); Influenza A, PCR Not Detected (NotDetected); Influenza AH1, 2009 Not Detected (NotDetected); Influenza AH1, PCR Not Detected (NotDetected); Influenza AH3,PCR Not Detected (NotDetected); Influenza B, PCR Not Detected (NotDetected); Mycoplasma Pneumoniae, PCR Not Detected (NotDetected); Parainfluenza 1, PCR Not Detected (NotDetected); Parainfluenza 2, PCR Not Detected (NotDetected); Parainfluenza 3, PCR Not Detected (NotDetected); Parainfluenza 4, PCR Not Detected (NotDetected); Respiratory Syncytial Virus Not Detected (NotDetected); Rhinovirus/Enterovirus Not Detected (NotDetected)
--- NOTE | 2019-03-09 10:31 | XR_ITS ---
PROCEDURE: XR CHEST 2V CLINICAL HISTORY: PNEUMONIA COMPARISON: XR CHEST 2V from 02/27/2019 CT CHEST WO/W CON from 02/28/2019 FINDINGS: Cardiac silhouette, and cephaly retraction of the hilar areas are stable. Pulmonary vessels are likely unchanged. Again seen is the strands of increased density in the left lung and the opacity in the right midlung and right lower lobe area. There is stable pleural thickening along the lateral upper right hemithorax and stable blunting of the lateral costophrenic angles bilaterally greater on the right. No acute bony abnormalities. IMPRESSION: Overall no change. Most findings are likely from fibro nodular scarring however there could be consolidation/atelectasis which is stable in the right mid lung in the right lower lobe. Bilateral pleural reactions could be pleural thickening although small right-sided pleural effusion is possible. Dictated by: Fer Coleman 03/09/2019 11:21 Electronically signed by Fer Coleman in [place] 03/09/2019 11:21
== END ==
PROVIDERS: Visit Provider Family Medicine
DX: J18.9 Pneumonia, unspecified organism (principal); R50.9 Fever, unspecified; R68.89 Other general symptoms and signs
CPT/HCPCS: 71046; 87486; 87581; 87633; 87798

== ENCOUNTER 2019-03-13 10:09 | Inpatient (IN) ==
--- NOTE | 2019-03-13 10:43 | Pharmacy Consult Notes ---
[facility] Pharmacy VTE Monitoring - Patient Demographics Admission date: 03/13/19 Report Date: 03/13/19 Time: 10:43 Allergies/Adverse Reactions: Patient Allergies No Known Allergies Allergy (Verified 02/27/19 07:07) Height: 1.6 m Weight: 58.995 kg - Prophylaxis VTE Prophylaxis Ordered?: Yes Types of VTE Prophylaxis: TEDS Knee High Location of Applied Device: Bilateral Lower Extremeties
[2019-03-13 11:54] LABS: ABG Base Excess 0.4 mmol/L (-2.4-2.3); ABG HCO3 24.3 mmhg (22.0-26.0); ABG Oxygen Saturation 96 % (90-100); ABG PCO2 35.2 mmhg (35.0-45.0); ABG PH 7.46 mmol/L (7.35-7.45); ABG PO2 83.8 mmhg (80-100); ABG TCO2 25.4 mmhg (23-27)
[2019-03-13 11:57] LABS: Oxygen 2LPM %
[2019-03-13 12:22] LABS: Basophils % 0.4 % (0.1-2.0); Eosinophils % 0.4 % (0.1-12.0); Hematocrit 33.5 % (37.0-47.0); Hemoglobin 10.9 g/dL (12.2-16.2); Lymphocytes # 0.3 K/mm3 (0.7-4.5); Lymphocytes % 11.1 % (10-50); Mean Corpuscular HGB Conc 32.5 g/dL (31.8-35.4); Mean Corpuscular Volume 89.3 fl (81-99); Mean Platelet Volume 7.9 fl (7.4-10.4); Monocytes # 0.1 K/mm3 (0.1-1.0); Monocytes % 3.7 % (1.7-9.3); Neutrophils # 2.1 K/mm3 (1.8-7.8); Neutrophils % 84.4 % (37.0-80.0); Platelet Count 161 K/mm3 (142-424); Red Blood Count 3.76 M/mm3 (4.20-5.40); Red Cell Distribution Width 13.5 % (11.5-17.5); White Blood Count 2.4 K/mm3 (4.8-10.8)
[2019-03-13 12:27] LABS: Anion Gap 14.2 mEq/L (5-15); Calcium 7.5 mg/dL (8.5-10.1)
--- NOTE | 2019-03-13 13:04 | Electrocardiograph Report ---
APPROVED REPORT Exam: Resting ECG HR:116 bpm ECG Measurements Heart Rate 116 AXES NH 166 P 69 QRSd 72 QRS 210 QT 304 T65 QTc 422 <Conclusion> Sinus tachycardia Possible Left atrial enlargement Right superior axis deviation Incomplete RBBB Abnormal ECG Electronically signed by : Rajan Moy, 03/13/2019 13:03:52
--- NOTE | 2019-03-13 16:39 | History & Physical Report ---
*Admission Date: 03/13/19 *Chief complaint: Shortness of breath *History of present illness: 68-year-old female with stage IV sarcoidosis was seen in the office today for follow-up of hospitalization at this facility that occurred from February 27 through March 04 when patient was treated for mycoplasma pneumonia of the right lung. Since patient's discharge from hospital on March 04 she had returned to the office in the interim with complaints of worsening shortness of breath, fevers and poor appetite. On that evaluation in the office patient's lung exam was similar to the day of discharge from the hospital. It was felt she had likely contracted a viral illness. She was hypoxic in the office. She was placed on supplemental oxygen and the patient was started on levofloxacin. She returned today to the office for her originally intended hospital follow-up. She had improved very little compared to March 09. She remains short of breath and tachypneic. In the office her respiratory rate was 26 breaths/min and she was tachycardic with a pulse rate of 130. She was afebrile in the of fice and had been afebrile for the last 48 hours. Her lung exam was significant only for diminished breath sounds in the base consistent with a previously identified right pleural effusion. Patient also appeared dehydrated and had reported inability to consume significant quantities of fluids due to extreme nausea and episodes of retching or vomiting that would occur. Decision was made to readmit the patient to start broad-spectrum antibiotics, repeat chest x-ray as well as a CT scan, rule out pulmonary embolism. [facility] History I have reviewed the patient's past medical history: Yes Medical History: Reports:: Asthma, Cancer (Right mastectomy), Gastroesophageal Reflux Disease(GERD), Hyperlipidemia, Hypertension, Lung Disease (Sarcoidosis with pulmonary fibrosis), Kidney Stones Denies:: Diabetes Mellitus Type 1, Diabetes Mellitus Type 2, Internal Pacemaker, MRSA, Seizures *Have you ever received a pneumonia vaccine?: Yes *Have you received a flu vaccine this season?: Yes Laterality Cases: Right: Mastectomy, Bilateral: Tonsillectomy Other Surgeries: Yes: Appendectomy, Cardiac Catheterization, Colonoscopy, Colon Resection, Hysterectomy-Total, Other. No: Pacemaker Amputation: No Fractures: No - *Social History Educational Level: Completed High School Smoking Status: Never smoker Alcohol Intake: never Alcohol Intake Frequency:: holidays/special occasions only Substance Use Type: denies use *Occupational Status:: retired Housing: house Household Members: spouse *Travel in the last 8 weeks: None Family Hx:: Hyperlipidemia, Hypertension, Kidney Disease, Stroke Review of Systems - Constitutional Reports anorexia, Reports fatigue, Reports fever(s), Reports malaise, Reports weakness, Reports weight loss, Denies body ache(s), Denies chills, Denies headache(s) - *Cardiovascular Denies chest pain, Denies chest pain at rest - *Respiratory Reports chest congestion, Reports cough, Reports shortness of breath, Reports shortness of breath with activity, Denies change in phlegm color, Denies excessive phlegm production, Denies coughing up blood, Denies pain on inspiration, Denies pain with cough - *Gastrointestinal Denies abdominal pain Meds Home Medications Medication Instructions Recorded Confirmed Type Albuterol Sulfate [Proair Hfa 2 puffs IH Q4HP PRN 04/30/17 03/13/19 History 90mcg/puff Inh] Amlodipine Besylate [Amlodipine 10 mg PO DAILY 04/30/17 03/13/19 History 10mg Tab] Atorvastatin Calcium [Atorvastatin 20 mg PO HS 04/30/17 03/13/19 History 20mg Tab] Montelukast Sodium [Montelukast 10 mg PO HS 04/30/17 03/13/19 History 10mg Tab] Omeprazole [Omeprazole 20mg 40 mg PO DAILY 04/30/17 03/13/19 History Capsule] calcium citrate 200 mg (950 mg) 600 mg PO BID tab 08/27/17 03/13/19 History tablet azathioprine 50 mg tablet 50 mg PO BID 30 Days #60 tab 02/25/18 03/13/19 History Ondansetron [Zofran 4mg ODT] 4 mg PO TIDP PRN #10 tab.rapdis 02/26/19 Rx Alendronate Sodium [Fosamax 70mg 70 mg PO WEEKLY 02/27/19 03/13/19 History Tablet] Buspirone HCl [Buspar 10mg 10 mg PO BID PRN 03/13/19 03/13/19 History tablet] Infliximab [Remicade 100mg vial] 0 mg IV .EVERY 8 WEEKS 03/13/19 03/13/19 History L.acidoph,Paracasei, B.lactis 1 each PO DAILY 03/13/19 03/13/19 History [Probiotic] Loratadine [Claritin 10mg Tablet] 10 mg PO DAILY 03/13/19 03/13/19 History levoFLOXacin [Levofloxacin 750MG 750 mg PO DAILY 03/13/19 03/13/19 History Tablet] predniSONE [Deltasone 20mg 20 mg PO DAILY 03/13/19 03/13/19 History tablet] Allergies Allergy/AdvReac Type Severity Reaction Status Date / Time No Known Allergies Allergy Verified 02/27/19 07:07 Exam Vital signs and Labs for Last 24 Hours: Temp Pulse Resp BP Pulse Ox 98.9 F 112 H 26 H 117/62 96 03/13/19 15:48 03/13/19 15:48 03/13/19 15:48 03/13/19 15:48 03/13/19 15:48 Laboratory Results - last 24 hr 03/13/19 10:30: Specimen Source L brachial, O2 % 2lpm, ABG pH 7.46 H, ABG pCO2 35.2, ABG pO2 83.8, ABG HCO3 24.3, ABG Total CO2 25.4, ABG O2 Saturation 96, ABG Base Excess 0.4 03/13/19 11:10: Lactate 1.3 03/13/19 12:00: WBC 2.4 L, RBC 3.76 L, Hgb 10.9 L, Hct 33.5 L, MCV 89.3, MCH 29.0, MCHC 32.5, RDW 13.5, Plt Count 161, MPV 7.9, Neut % (Auto) 84.4 H, Lymph % (Auto) 11.1, [place] % (Auto) 3.7, Eos % (Auto) 0.4, Baso % (Auto) 0.4, Neut # (Auto) 2.1, Lymph # (Auto) 0.3 L, [place] # (Auto) 0.1, Eos # (Auto) 0.0, Baso # (Auto) 0.0 03/13/19 12:00: Sodium 139, Potassium 4.2, Chloride 102, Carbon Dioxide 27, Anion Gap 14.2, BUN 15, Creatinine 0.92, Estimated Creat Clear 52, Estimated GFR 61, Est GFR ( Amer) 74, Glucose 89, Calcium 7.5 L 03/13/19 12:00: Mycoplasma pneumon IgM Reactive A 03/13/19 12:00: Troponin I < 0.02 I & O for Last 24 hours: Intake & Output 03/11/19 03/12/19 03/13/19 03/14/19 11:59 11:59 11:59 11:59 Weight 130 lb - Constitutional mild distress (Tachypneic), thin, cooperative - *Routine HEENT Exam Head: Present: normocephalic Eye: Present: EOMI, PERRL ENT: Present: mucous membranes dry - *Routine Neck Exam Present: supple. Absent: JVD, carotid bruit - *Routine Respiratory Exam Present: accessory muscle use, decreased breath sounds (Right base), CTA bilaterally. Absent: rales, wheezes, crackles - *Routine Cardiovascular Exam Present: tachycardia. Absent: murmur - *Routine Abdominal Exam Present: soft. Absent: tenderness, distended - *Routine Extremities Exam Present: edema (Bilateral pedal) - *Routine Skin Exam Present: intact. Absent: erythema Assessment and Plan (1) Mycoplasma pneumonia Current visit: No Status: Acute Category: Medical Code(s): J15.7 - Pneumonia due to Mycoplasma pneumoniae (2) Pulmonary fibrosis Current visit: No Status: Chronic Category: Medical Code(s): J84.10 - Pulmonary fibrosis, unspecified (3) Appetite loss Current visit: No Status: Acute Category: Medical Code(s): R63.0 - Anorexia (4) Hyperlipidemia Current visit: No Status: Acute Qualifiers: Hyperlipidemia type: unspecified Qualified Code(s): E78.5 - Hyperlipidemia, unspecified Category: Medical Code(s): E78.5 - Hyperlipidemia, unspecified (5) Sarcoidosis Current visit: No Status: Chronic Category: Medical Code(s): D86.9 - Sarcoidosis, unspecified - Assessment and plan all Dx Assessment and Plan for all problems:: 1. Despite positive mycoplasma antibody I will continue broad-spectrum antibiotics on this patient with Zosyn and Levaquin and will add on vancomycin as well. 2. Continue supplemental oxygen support and patient should ambulate as tolerated. 3. Repeat chest CT to assess the size of the right pleural effusion. 4. Patient will need echocardiogram during this hospitalization as well as some form of imaging to rule out pulmonary embolism. Patient will be started on Lovenox. CT angiogram of the chest was originally intended to be done today but because of patient's dehydration a vein could not be accessed with adequate sized catheter. She may need VQ scan. 5. Repeat CBC and BMP in a.m. 6. Monitor p.o. intake
[2019-03-13 17:24] LABS: Basophils % 0.5 % (0.1-2.0); Eosinophils % 0.4 % (0.1-12.0); Hematocrit 35.8 % (37.0-47.0); Hemoglobin 11.6 g/dL (12.2-16.2); Lymphocytes # 0.3 K/mm3 (0.7-4.5); Mean Corpuscular HGB Conc 32.4 g/dL (31.8-35.4); Mean Corpuscular Volume 89.1 fl (81-99); Mean Platelet Volume 8.1 fl (7.4-10.4); Monocytes # 0.1 K/mm3 (0.1-1.0); Monocytes % 4.6 % (1.7-9.3); Neutrophils # 2.2 K/mm3 (1.8-7.8); Neutrophils % 82.5 % (37.0-80.0); Platelet Count 169 K/mm3 (142-424); Red Blood Count 4.02 M/mm3 (4.20-5.40); Red Cell Distribution Width 13.5 % (11.5-17.5); White Blood Count 2.6 K/mm3 (4.8-10.8)
[2019-03-13 17:59] LABS: Anion Gap 12.8 mEq/L (5-15); Calcium 7.1 mg/dL (8.5-10.1)
--- NOTE | 2019-03-14 08:31 | Progress Note ---
Internal Medicine - PN: Subj *Date: 03/14/19 *Time: 08:28 Interval history: Patient had no problems yesterday evening but earlier this morning with the simple act of getting out of bed and using the bedside commode patient became profoundly short of breath with a decrease in her O2 sats to the high 70s while wearing supplemental oxygen at 2 L/min. Patient required assistance to get back into the bed and it took several minutes for patient's O2 sats to recover. Patient was given morphine for air hunger. She remains tachypneic. CT scan of the chest with and without contrast yesterday did reveal bilateral patchy areas of infiltrates which is a change from her previous CT that showed only right- sided infiltrates. Patient's cough is essentially nonproductive. Exam Vital signs and Labs for Last 24 Hours: Temp Pulse Resp BP Pulse Ox 98.3 F 134 H 26 H 154/75 H 89 L 03/14/19 07:30 03/14/19 07:30 03/14/19 08:17 03/14/19 07:30 03/14/19 07:30 Laboratory Results - last 24 hr 03/13/19 10:30: Specimen Source L brachial, O2 % 2lpm, ABG pH 7.46 H, ABG pCO2 35.2, ABG pO2 83.8, ABG HCO3 24.3, ABG Total CO2 25.4, ABG O2 Saturation 96, ABG Base Excess 0.4 03/13/19 11:10: Lactate 1.3 03/13/19 12:00: WBC 2.4 L, RBC 3.76 L, Hgb 10.9 L, Hct 33.5 L, MCV 89.3, MCH 29.0, MCHC 32.5, RDW 13.5, Plt Count 161, MPV 7.9, Neut % (Auto) 84.4 H, Lymph % (Auto) 11.1, [place] % (Auto) 3.7, Eos % (Auto) 0.4, Baso % (Auto) 0.4, Neut # (Auto) 2.1, Lymph # (Auto) 0.3 L, [place] # (Auto) 0.1, Eos # (Auto) 0.0, Baso # (Auto) 0.0 03/13/19 12:00: Sodium 139, Potassium 4.2, Chloride 102, Carbon Dioxide 27, Anion Gap 14.2, BUN 15, Creatinine 0.92, Estimated Creat Clear 52, Estimated GFR 61, Est GFR ( Amer) 74, Glucose 89, Calcium 7.5 L 03/13/19 12:00: Mycoplasma pneumon IgM Reactive A 03/13/19 12:00: Troponin I < 0.02 03/13/19 17:17: WBC 2.6 L, RBC 4.02 L, Hgb 11.6 L, Hct 35.8 L, MCV 89.1, MCH 28.9, MCHC 32.4, RDW 13.5, Plt Count 169, MPV 8.1, Neut % (Auto) 82.5 H, Lymph % (Auto) 12.0, [place] % (Auto) 4.6, Eos % (Auto) 0.4, Baso % (Auto) 0.5, Neut # (Auto) 2.2, Lymph # (Auto) 0.3 L, [place] # (Auto) 0.1, Eos # (Auto) 0.0, Baso # (Auto) 0.0 03/13/19 17:17: Sodium 139, Potassium 3.8, Chloride 104, Carbon Dioxide 26, Anion Gap 12.8, BUN 14, Creatinine 0.84, Estimated Creat Clear 52, Estimated GFR 68, Est GFR ( Amer) 82, Glucose 101, Calcium 7.1 L I & O for Last 24 hours: Intake & Output 03/11/19 03/12/19 03/13/19 03/14/19 11:59 11:59 11:59 11:59 Intake Total 5515 / 5515 Balance 5515 / 5515 Weight 130 lb 137 lb Narrative: Patient is sitting up in bed. She is tachypneic. She is pale. Nasal cannula is in place. Oropharynx is moist. Lungs have rales at the right base. Heart rate is tachycardic. Extremities have improvement in pedal edema Assessment and Plan (1) Mycoplasma pneumonia Current visit: No Status: Acute Category: Medical Code(s): J15.7 - Pneumonia due to Mycoplasma pneumoniae (2) Pulmonary fibrosis Current visit: No Status: Chronic Category: Medical Code(s): J84.10 - P ulmonary fibrosis, unspecified (3) Appetite loss Current visit: No Status: Acute Category: Medical Code(s): R63.0 - Anorexia (4) Hyperlipidemia Current visit: No Status: Acute Qualifiers: Hyperlipidemia type: unspecified Qualified Code(s): E78.5 - Hyperlipidemia, unspecified Category: Medical Code(s): E78.5 - Hyperlipidemia, unspecified (5) Sarcoidosis Current visit: No Status: Chronic Category: Medical Code(s): D86.9 - Sarcoidosis, unspecified - Assessment and plan all Dx Assessment and Plan for all problems:: 1. Increase supplemental oxygen as needed. Given 2 mg of morphine IV x1 for air hunger. Patient will be given 40 mg of Lasix IV. Await morning labs including BNP.
[2019-03-14 08:33] LABS: Basophils % 0.6 % (0.1-2.0); Eosinophils % 0.9 % (0.1-12.0); Hematocrit 38.1 % (37.0-47.0); Hemoglobin 11.8 g/dL (12.2-16.2); Lymphocytes # 0.4 K/mm3 (0.7-4.5); Lymphocytes % 9.2 % (10-50); Mean Corpuscular HGB Conc 30.9 g/dL (31.8-35.4); Mean Corpuscular Volume 90.3 fl (81-99); Mean Platelet Volume 7.5 fl (7.4-10.4); Monocytes # 0.3 K/mm3 (0.1-1.0); Monocytes % 6.3 % (1.7-9.3); Neutrophils # 3.6 K/mm3 (1.8-7.8); Platelet Count 241 K/mm3 (142-424); Red Blood Count 4.22 M/mm3 (4.20-5.40); Red Cell Distribution Width 14.5 % (11.5-17.5); White Blood Count 4.4 K/mm3 (4.8-10.8)
[2019-03-14 08:40] LABS: Anion Gap 16.9 mEq/L (5-15); Calcium 7.2 mg/dL (8.5-10.1)
--- NOTE | 2019-03-14 10:56 | Pharmacy Consult Notes ---
- Pharmacy Consult Date: 03/14/19 Time: 10:54 Referring provider: DR. MCKEON Reason for Consult:: VANCOMYCIN DOSING Allergies and ADEs:: Allergies Allergy/AdvReac Type Severity Reaction Status Date / Time No Known Allergies Allergy Verified 02/27/19 07:07 Home Medications:: Home Medications Medication Instructions Recorded Confirmed Type Albuterol Sulfate [Proair Hfa 2 puffs IH Q4HP PRN 04/30/17 03/13/19 History 90mcg/puff Inh] Amlodipine Besylate [Amlodipine 10 mg PO DAILY 04/30/17 03/13/19 History 10mg Tab] Atorvastatin Calcium [Atorvastatin 20 mg PO HS 04/30/17 03/13/19 History 20mg Tab] Montelukast Sodium [Montelukast 10 mg PO HS 04/30/17 03/13/19 History 10mg Tab] Omeprazole [Omeprazole 20mg 40 mg PO DAILY 04/30/17 03/13/19 History Capsule] calcium citrate 200 mg (950 mg) 600 mg PO BID tab 08/27/17 03/13/19 History tablet azathioprine 50 mg tablet 50 mg PO BID 30 Days #60 tab 02/25/18 03/13/19 History Ondansetron [Zofran 4mg ODT] 4 mg PO TIDP PRN #10 tab.rapdis 02/26/19 03/13/19 Rx Alendronate Sodium [Fosamax 70mg 70 mg PO WEEKLY 02/27/19 03/13/19 History Tablet] Buspirone HCl [Buspar 10mg 10 mg PO BID PRN 03/13/19 03/13/19 History tablet] Infliximab [Remicade 100mg vial] 0 mg IV .EVERY 8 WEEKS 03/13/19 03/13/19 History L.acidoph,Paracasei, B.lactis 1 each PO DAILY 03/13/19 03/13/19 History [Probiotic] Loratadine [Claritin 10mg Tablet] 10 mg PO DAILY 03/13/19 03/13/19 History levoFLOXacin [Levofloxacin 750MG 750 mg PO DAILY 03/13/19 03/13/19 History Tablet] predniSONE [Deltasone 20mg 20 mg PO DAILY 03/13/19 03/13/19 History tablet] Height: 1.6 m Weight: 62.142 kg Laboratory Results:: Laboratory Results - last 24 hr 03/13/19 10:30: Specimen Source L brachial, O2 % 2lpm, ABG pH 7.46 H, ABG pCO2 35.2, ABG pO2 83.8, ABG HCO3 24.3, ABG Total CO2 25.4, ABG O2 Saturation 96, ABG Base Excess 0.4 03/13/19 11:10: Lactate 1.3 03/13/19 12:00: WBC 2.4 L, RBC 3.76 L, Hgb 10.9 L, Hct 33.5 L, MCV 89.3, MCH 29.0, MCHC 32.5, RDW 13.5, Plt Count 161, MPV 7.9, Neut % (Auto) 84.4 H, Lymph % (Auto) 11.1, [place] % (Auto) 3.7, Eos % (Auto) 0.4, Baso % (Auto) 0.4, Neut # (Auto) 2.1, Lymph # (Auto) 0.3 L, [place] # (Auto) 0.1, Eos # (Auto) 0.0, Baso # (Auto) 0.0 03/13/19 12:00: Sodium 139, Potassium 4.2, Chloride 102, Carbon Dioxide 27, Anion Gap 14.2, BUN 15, Creatinine 0.92, Estimated Creat Clear 52, Estimated GFR 61, Est GFR ( Amer) 74, Glucose 89, Calcium 7.5 L 03/13/19 12:00: Mycoplasma pneumon IgM Reactive A 03/13/19 12:00: Troponin I < 0.02 03/13/19 17:17: WBC 2.6 L, RBC 4.02 L, Hgb 11.6 L, Hct 35.8 L, MCV 89.1, MCH 28.9, MCHC 32.4, RDW 13.5, Plt Count 169, MPV 8.1, Neut % (Auto) 82.5 H, Lymph % (Auto) 12.0, [place] % (Auto) 4.6, Eos % (Auto) 0.4, Baso % (Auto) 0.5, Neut # (Auto) 2.2, Lymph # (Auto) 0.3 L, [place] # (Auto) 0.1, Eos # (Auto) 0.0, Baso # (Auto) 0.0 03/13/19 17:17: Sodium 139, Potassium 3.8, Chloride 104, Carbon Dioxide 26, Anion Gap 12.8, BUN 14, Creatinine 0.84, Estimated Creat Clear 52, Estimated GFR 68, Est GFR ( Amer) 82, Glucose 101, Calcium 7.1 L 03/14/19 08:25: B-Natriuretic Peptide 129 H 03/14/19 08:25: WBC 4.4 L D, RBC 4.22, Hgb 11.8 L, Hct 38.1, MCV 90.3, MCH 27.9, MCHC 30.9 L, RDW 14.5, Plt Count 241 D, MPV 7.5, Neut % (Auto) 83.0 H, Lymph % (Auto) 9.2 L, [place] % (Auto) 6.3, Eos % (Auto) 0.9, Baso % (Auto) 0.6, Neut # (Auto) 3.6, Lymph # (Auto) 0.4 L, [place] # (Auto) 0.3, Eos # (Auto) 0.0, Baso # (Auto) 0.0 03/14/19 08:25: Sodium 141, Potassium 3.9, Chloride 107, Carbon Dioxide 21, Anion Gap 16.9 H, BUN 13, Creatinine 0.81, Estimated Creat Clear 54, Estimated GFR 71, Est GFR ( Amer) 86, Glucose 84, Calcium 7.2 L Medical History: Reports:: Asthma, Cancer (Right mastectomy), Gastroesophageal Reflux Disease(GERD), Hyperlipidemia, Hypertension, Lung Disease (Sarcoidosis with pulmonary fibrosis), Kidney Stones Denies:: Diabetes Mellitus Type 1, Diabetes Mellitus Type 2, Internal Pacemaker, MRSA, Seizures Assessment and Plan (1) Mycoplasma pneumonia Current visit: No Status: Acute Category: Medical Code(s): J15.7 - Pneumonia due to Mycoplasma pneumoniae (2) Pulmonary fibrosis Current visit: No Status: Chronic Category: Medical Code(s): J84.10 - Pulmonary fibrosis, unspecified (3) Appetite loss Current visit: No Status: Acute Category: Medical Code(s): R63.0 - Anorexia (4) Hyperlipidemia Current visit: No Status: Acute Qualifiers: Hyperlipidemia type: unspecified Qualified Code(s): E78.5 - Hyperlipidemia, unspecified Category: Medical Code(s): E78.5 - Hyperlipidemia, unspecified (5) Sarcoidosis Current visit: No Status: Chronic Category: Medical Code(s): D86.9 - Sarcoidosis, unspecified - Assessment and plan all Dx Assessment and Plan for all problems:: BASED ON PATIENT FACTORS, RECOMMEND VANCOMYCIN 1GM IV EVERY 24 HOURS. PHARMACY WILL OBTAIN TROUGH LEVEL 03/16/19 PRIOR TO DOSE AND WILL ADJUST DOSE APPROPRIATE AT THAT POINT. -MARIAELENA CEVALLOS, SHIRLENED
[2019-03-15 07:02] LABS: Lymphocytes # 0.2 K/mm3 (0.7-4.5); Monocytes # 0.1 K/mm3 (0.1-1.0); Neutrophils # 1.6 K/mm3 (1.8-7.8)
[2019-03-15 07:15] LABS: Hematocrit 32.9 % (37.0-47.0); Lymphocytes % 9.9 % (10-50); Mean Corpuscular HGB Conc 32.2 g/dL (31.8-35.4); Mean Corpuscular Volume 88.2 fl (81-99); Mean Platelet Volume 7.7 fl (7.4-10.4); Monocytes % 5.4 % (1.7-9.3); Neutrophils % 84.6 % (37.0-80.0); Platelet Count 195 K/mm3 (142-424); Red Blood Count 3.73 M/mm3 (4.20-5.40); Red Cell Distribution Width 14.6 % (11.5-17.5); White Blood Count 1.8 K/mm3 (4.8-10.8)
[2019-03-15 07:16] LABS: Anion Gap 12.2 mEq/L (5-15)
[2019-03-15 07:39] LABS: Hemoglobin 10.6 g/dL (12.2-16.2)
--- NOTE | 2019-03-15 08:19 | Progress Note ---
Internal Medicine - PN: Subj *Date: 03/15/19 *Time: 08:16 Interval history: Patient has no complaints this morning and is feeling better. Yesterday she had excellent response to Lasix with 2100 mL's of urine output. This in conjunction with morphine for air hunger seem to alleviate her dyspnea. Barahona catheter remains in place. Patient continues to have minimal cough. Exam Vital signs and Labs for Last 24 Hours: Temp Pulse Resp BP Pulse Ox 97.5 F L 89 18 103/59 L 95 03/15/19 04:00 03/15/19 04:00 03/15/19 04:00 03/15/19 04:00 03/15/19 04:00 Laboratory Results - last 24 hr 03/14/19 08:25: B-Natriuretic Peptide 129 H 03/14/19 08:25: WBC 4.4 L D, RBC 4.22, Hgb 11.8 L, Hct 38.1, MCV 90.3, MCH 27.9, MCHC 30.9 L, RDW 14.5, Plt Count 241 D, MPV 7.5, Neut % (Auto) 83.0 H, Lymph % (Auto) 9.2 L, [place] % (Auto) 6.3, Eos % (Auto) 0.9, Baso % (Auto) 0.6, Neut # (Auto) 3.6, Lymph # (Auto) 0.4 L, [place] # (Auto) 0.3, Eos # (Auto) 0.0, Baso # (Auto) 0.0 03/14/19 08:25: Sodium 141, Potassium 3.9, Chloride 107, Carbon Dioxide 21, Anion Gap 16.9 H, BUN 13, Creatinine 0.81, Estimated Creat Clear 54, Estimated GFR 71, Est GFR ( Amer) 86, Glucose 84, Calcium 7.2 L 03/15/19 06:28: WBC 1.8 L* D, RBC 3.73 L, Hgb 10.6 L D, Hct 32.9 L, MCV 88.2, MCH 28.4, MCHC 32.2, RDW 14.6, Plt Count 195, MPV 7.7, Neut % (Auto) 84.6 H, Lymph % (Auto) 9.9 L, [place] % (Auto) 5.4, Eos % (Auto) 0.0 L, Baso % (Auto) 0.0 L , Neut # (Auto) 1.6 L, Lymph # (Auto) 0.2 L, [place] # (Auto) 0.1, Eos # (Auto) 0.0, Baso # (Auto) 0.0 03/15/19 06:28: Sodium 143, Potassium 3.2 L, Chloride 107, Carbon Dioxide 27 D, Anion Gap 12.2, BUN 16, Creatinine 0.81, Estimated Creat Clear 53, Estimated GFR 71, Est GFR ( Amer) 86, Glucose 159 H D, Calcium 7.0 L I & O for Last 24 hours: Intake & Output 03/12/19 03/13/19 03/14/19 03/15/19 11:59 11:59 11:59 11:59 Intake Total 5665 / 5665 951 / 951 Output Total 2800 / 2800 Balance 5665 / 5665 -1849 / -1849 Weight 130 lb 137 lb 133 lb 6 oz Narrative: She is comfortable sitting in bed with nasal cannula on. Lungs are relatively clear with diminished breath sounds at the right base and an end expiratory wheeze heard anteriorly in both the right and left lung. Heart has a regular rate and rhythm. Extremities have no edema. Assessment and Plan (1) Mycoplasma pneumonia Current visit: No Status: Acute Category: Medical Code(s): J15.7 - Pneumonia due to Mycoplasma pneumoniae (2) Pulmonary fibrosis Current visit: No Status: Chronic Category: Medical Code(s): J84.10 - Pulmonary fibrosis, unspecified (3) Appetite loss Current visit: No Status: Acute Category: Medical Code(s): R63.0 - Anorexia (4) Hyperlipidemia Current visit: No Status: Acute Qualifiers: Hyperlipidemia type: unspecified Qualified Code(s): E78.5 - Hyperlipidemia, unspecified Category: Medical Code(s): E78.5 - Hyperlipidemia, unspecified (5) Sarcoidosis Current visit: No Status: Chronic Category: Medical Code(s): D86.9 - Sarcoidosis, unspecified - Assessment and plan all Dx Assessment and Plan for all problems:: I suspect patient's underlying lung abnormalities may be more due to her sarcoidosis than actual pneumonia. I will de-escalate antibiotic therapy and discontinue patient's Zosyn. Because of her excellent response to diuresis echocardiogram is been ordered for the morning. Decrease Solu-Medrol to every 8 hours
[2019-03-16 06:53] LABS: Eosinophils % 0.1 % (0.1-12.0); Hematocrit 34.2 % (37.0-47.0); Hemoglobin 10.7 g/dL (12.2-16.2); Lymphocytes # 0.2 K/mm3 (0.7-4.5); Lymphocytes % 5.3 % (10-50); Mean Corpuscular HGB Conc 31.2 g/dL (31.8-35.4); Mean Corpuscular Volume 88.4 fl (81-99); Monocytes # 0.2 K/mm3 (0.1-1.0); Monocytes % 6.5 % (1.7-9.3); Neutrophils # 3.1 K/mm3 (1.8-7.8); Neutrophils % 88.1 % (37.0-80.0); Platelet Count 213 K/mm3 (142-424); Red Blood Count 3.87 M/mm3 (4.20-5.40); Red Cell Distribution Width 14.5 % (11.5-17.5); White Blood Count 3.5 K/mm3 (4.8-10.8)
[2019-03-16 07:06] LABS: Calcium 7.4 mg/dL (8.5-10.1)
[2019-03-16 07:11] LABS: Vancomycin,Trough 7.6 mcg/ml (10.0-20.0)
--- NOTE | 2019-03-16 07:29 | Progress Note ---
Internal Medicine - PN: Subj *Date: 03/16/19 *Time: 07:27 Interval history: Patient reports feeling comfortable while in bed. Barahona catheter is allowed her to be bedbound without exerting herself. She denies shortness of breath. She reports her appetite is "okay". She is using incentive spirometer which initially triggered some cough. Exam Vital signs and Labs for Last 24 Hours: Temp Pulse Resp BP Pulse Ox 97.7 F 75 18 116/68 97 03/16/19 04:00 03/16/19 04:00 03/16/19 04:00 03/16/19 04:00 03/16/19 04:00 Laboratory Results - last 24 hr 03/15/19 06:28: Hgb 10.6 L D 03/16/19 06:45: WBC 3.5 L D, RBC 3.87 L, Hgb 10.7 L, Hct 34.2 L, MCV 88.4, MCH 27.6, MCHC 31.2 L, RDW 14.5, Plt Count 213, MPV 8.0, Neut % (Auto) 88.1 H, Lymph % (Auto) 5.3 L, [place] % (Auto) 6.5, Eos % (Auto) 0.1, Baso % (Auto) 0.0 L, Neut # (Auto) 3.1, Lymph # (Auto) 0.2 L, [place] # (Auto) 0.2, Eos # (Auto) 0.0, Baso # (Auto) 0.0 03/16/19 06:45: Sodium 146 H, Potassium 3.0 L, Chloride 109 H, Carbon Dioxide 27, Anion Gap 13.0, BUN 22 H D, Creatinine 0.76, Estimated Creat Clear 54, Estimated GFR 76, Est GFR ( Amer) 92, Glucose 163 H, Calcium 7.4 L, Vancomycin Trough 7.6 L I & O for Last 24 hours: Intake & Output 03/13/19 03/14/19 03/15/19 03/16/19 11:59 11:59 11:59 11:59 Intake Total 5665 / 5665 1341 / 1341 390 / 390 Output Total 2800 / 2800 550 / 550 Balance 5665 / 5665 -1459 / -1459 -160 / -160 Weight 130 lb 137 lb 133 lb 6 oz 135 lb 2 oz Microbiology Reports for the Last 24 Hours: Microbiology 03/13/19 11:10 Blood Blood Culture - Preliminary NO GROWTH AFTER 48 HOURS 03/13/19 11:10 Blood Blood Culture - Preliminary NO GROWTH AFTER 48 HOURS Narrative: Patient appears comfortable. Nasal cannula in place. Lungs are clear except for distant sounds at the right base. Heart has a regular rate and rhythm. Abd omen is soft. Assessment and Plan (1) Mycoplasma pneumonia Current visit: No Status: Acute Category: Medical Code(s): J15.7 - Pneumonia due to Mycoplasma pneumoniae (2) Pulmonary fibrosis Current visit: No Status: Chronic Category: Medical Code(s): J84.10 - Pulmonary fibrosis, unspecified (3) Appetite loss Current visit: No Status: Acute Category: Medical Code(s): R63.0 - Anorexia (4) Hyperlipidemia Current visit: No Status: Acute Qualifiers: Hyperlipidemia type: unspecified Qualified Code(s): E78.5 - Hyperlipidemia, unspecified Category: Medical Code(s): E78.5 - Hyperlipidemia, unspecified (5) Sarcoidosis Current visit: No Status: Chronic Category: Medical Code(s): D86.9 - Sarcoidosis, unspecified - Assessment and plan all Dx Assessment and Plan for all problems:: 1. Echocardiogram today 2. Remove Barahona after echo and get patient out of bed to chair.
[2019-03-16 07:56] LABS: Lymphocytes % 6 % (10-50); Monocytes % 5 % (2-9); Neutrophils % 89 % (42-76); RBC Morphology Normal; Total Cells Counted 100
--- NOTE | 2019-03-16 09:37 | Progress Note ---
Internal Medicine - PN: Subj *Date: 03/16/19 *Time: 09:36 Exam Vital signs and Labs for Last 24 Hours: Temp Pulse Resp BP Pulse Ox 98.7 F 96 H 22 126/69 92 L 03/16/19 08:00 03/16/19 08:00 03/16/19 08:00 03/16/19 08:00 03/16/19 08:00 Laboratory Results - last 24 hr 03/16/19 06:45: WBC 3.5 L D, RBC 3.87 L, Hgb 10.7 L, Hct 34.2 L, MCV 88.4, MCH 27.6, MCHC 31.2 L, RDW 14.5, Plt Count 213, MPV 8.0, Neut % (Auto) 88.1 H, Lymph % (Auto) 5.3 L, [place] % (Auto) 6.5, Eos % (Auto) 0.1, Baso % (Auto) 0.0 L, Neut # (Auto) 3.1, Lymph # (Auto) 0.2 L, [place] # (Auto) 0.2, Eos # (Auto) 0.0, Baso # (Auto) 0.0, Total Counted 100, Neutrophils % (Manual) 89 H, Lymphocytes % (Manual) 6 L, Monocytes % (Manual) 5, Platelet Estimate Normal, RBC Morphology Normal 03/16/19 06:45: Sodium 146 H, Potassium 3.0 L, Chloride 109 H, Carbon Dioxide 27, Anion Gap 13.0, BUN 22 H D, Creatinine 0.76, Estimated Creat Clear 54, Estimated GFR 76, Est GFR ( Amer) 92, Glucose 163 H, Calcium 7.4 L, Vancomycin Trough 7.6 L I & O for Last 24 hours: Intake & Output 03/13/19 03/14/19 03/15/19 03/16/19 23:59 23:59 23:59 23:59 Intake Total 2290 / 2290 3996 / 3996 1110 / 1110 Output Total 2650 / 2800 550 / 550 150 / 150 Balance 2290 / 2290 1346 / 1196 560 / 560 -150 / -150 Weight 58.967 kg 62.142 kg 60.498 kg 61.292 kg Microbiology Reports for the Last 24 Hours: Microbiology 03/13/19 11:10 Blood Blood Culture - Preliminary NO GROWTH AFTER 48 HOURS 03/13/19 11:10 Blood Blood Culture - Preliminary NO GROWTH AFTER 48 HOURS Assessment and Plan (1) Mycoplasma pneumonia Current visit: No Status: Acute Category: Medical Code(s): J15.7 - Pneumonia due to Mycoplasma pneumoniae (2) Pulmonary fibrosis Current visit: No Status: Chronic Category: Medical Code(s): J84.10 - Pulmonary fibrosis, unspecified (3) Appetite loss Current visit: No Status: Acute Category: Medical Code(s): R63.0 - Anorexia (4) Hyperlipidemia Current visit: No Status: Acute Qualifiers: Hyperlipidemia type: unspecified Qualified Code(s): E78.5 - Hyperlipidemia, unspecified Category: Medical Code(s): E78.5 - Hyperlipidemia, unspecified (5) Sarcoidosis Current visit: No Status: Chronic Category: Medical Code(s): D86.9 - Sarcoidosis, unspecified The patient's infection will respond to the chosen ABx?: Yes Is the patient receiving the right drug, dose, and route?: Yes Could a more targeted ABx be ordered?: No ( DE-ESCALATED ABX TO JUST LEVAQUIN.)
--- NOTE | 2019-03-16 10:16 | Pharmacy Consult Notes ---
- Pharmacy Consult Date: 03/16/19 Time: 10:15 Referring provider: DR. MCKEON Reason for Consult:: VANCOMYCIN TROUGH LEVEL Allergies and ADEs:: Allergies Allergy/AdvReac Type Severity Reaction Status Date / Time No Known Allergies Allergy Verified 02/27/19 07:07 Home Medications:: Home Medications Medication Instructions Recorded Confirmed Type Albuterol Sulfate [Proair Hfa 2 puffs IH Q4HP PRN 04/30/17 03/13/19 History 90mcg/puff Inh] Amlodipine Besylate [Amlodipine 10 mg PO DAILY 04/30/17 03/13/19 History 10mg Tab] Atorvastatin Calcium [Atorvastatin 20 mg PO HS 04/30/17 03/13/19 History 20mg Tab] Montelukast Sodium [Montelukast 10 mg PO HS 04/30/17 03/13/19 History 10mg Tab] Omeprazole [Omeprazole 20mg 40 mg PO DAILY 04/30/17 03/13/19 History Capsule] calcium citrate 200 mg (950 mg) 600 mg PO BID tab 08/27/17 03/13/19 History tablet azathioprine 50 mg tablet 50 mg PO BID 30 Days #60 tab 02/25/18 03/13/19 History Ondansetron [Zofran 4mg ODT] 4 mg PO TIDP PRN #10 tab.rapdis 02/26/19 03/13/19 Rx Alendronate Sodium [Fosamax 70mg 70 mg PO WEEKLY 02/27/19 03/13/19 History Tablet] Buspirone HCl [Buspar 10mg 10 mg PO BID PRN 03/13/19 03/13/19 History tablet] Infliximab [Remicade 100mg vial] 0 mg IV .EVERY 8 WEEKS 03/13/19 03/13/19 History L.acidoph,Paracasei, B.lactis 1 each PO DAILY 03/13/19 03/13/19 History [Probiotic] Loratadine [Claritin 10mg Tablet] 10 mg PO DAILY 03/13/19 03/13/19 History levoFLOXacin [Levofloxacin 750MG 750 mg PO DAILY 03/13/19 03/13/19 History Tablet] predniSONE [Deltasone 20mg 20 mg PO DAILY 03/13/19 03/13/19 History tablet] Height: 1.6 m Weight: 61.292 kg Laboratory Results:: Laboratory Results - last 24 hr 03/16/19 06:45: WBC 3.5 L D, RBC 3.87 L, Hgb 10.7 L, Hct 34.2 L, MCV 88.4, MCH 27.6, MCHC 31.2 L, RDW 14.5, Plt Count 213, MPV 8.0, Neut % (Auto) 88.1 H, Lymph % (Auto) 5.3 L, [place] % (Auto) 6.5, Eos % (Auto) 0.1, Baso % (Auto) 0.0 L, Neut # (Auto) 3.1, Lymph # (Auto) 0.2 L, [place] # (Auto) 0.2, Eos # (Auto) 0.0, Baso # (Auto) 0.0, Total Counted 100, Neutrophils % (Manual) 89 H, Lymphocytes % (Manual) 6 L, Monocytes % (Manual) 5, Platelet Estimate Normal, RBC Morphology Normal 03/16/19 06:45: Sodium 146 H, Potassium 3.0 L, Chloride 109 H, Carbon Dioxide 27, Anion Gap 13.0, BUN 22 H D, Creatinine 0.76, Estimated Creat Clear 54, Estimated GFR 76, Est GFR ( Amer) 92, Glucose 163 H, Calcium 7.4 L, Vancomycin Trough 7.6 L Medical History: Reports:: Asthma, Cancer (Right mastectomy), Gastroesophageal Reflux Disease(GERD), Hyperlipidemia, Hypertension, Lung Disease (Sarcoidosis with pulmonary fibrosis), Kidney Stones Denies:: Diabetes Mellitus Type 1, Diabetes Mellitus Type 2, Internal Pacemaker, MRSA, Seizures Assessment and Plan (1) Mycoplasma pneumonia Current visit: No Status: Acute Category: Medical Code(s): J15.7 - Pneumonia due to Mycoplasma pneumoniae (2) Pulmonary fibrosis Current visit: No Status: Chronic Category: Medical Code(s): J84.10 - Pulmonary fibrosis, unspecified (3) Appetite loss Current visit: No Status: Acute Category: Medical Code(s): R63.0 - Anorexia (4) Hyperlipidemia Current visit: No Status: Acute Qualifiers: Hyperlipidemia type: unspecified Qualified Code(s): E78.5 - Hyperlipidemia, unspecified Category: Medical Code(s): E78.5 - Hyperlipidemia, unspecified (5) Sarcoidosis Current visit: No Status: Chronic Category: Medical Code(s): D86.9 - Sarcoidosis, unspecified - Assessment and plan all Dx Assessment and Plan for all problems:: BASED ON LEVEL AND PATIENT FACTORS, RECOMMEND CHANGING DOSE AND INTERVAL TO VANCOMYCIN 1250 MG IV Q18H. PHARMACY WILL CONTINUE TO MONITOR DAILY AND ADJUST APPROPRIATE.
[2019-03-17 07:04] LABS: Hematocrit 33.3 % (37.0-47.0); Hemoglobin 10.5 g/dL (12.2-16.2); Lymphocytes # 0.2 K/mm3 (0.7-4.5); Lymphocytes % 6.3 % (10-50); Mean Corpuscular HGB Conc 31.5 g/dL (31.8-35.4); Mean Corpuscular Volume 89.9 fl (81-99); Mean Platelet Volume 7.9 fl (7.4-10.4); Monocytes # 0.2 K/mm3 (0.1-1.0); Monocytes % 7.9 % (1.7-9.3); Neutrophils # 2.2 K/mm3 (1.8-7.8); Neutrophils % 85.7 % (37.0-80.0); Platelet Count 202 K/mm3 (142-424); Red Blood Count 3.71 M/mm3 (4.20-5.40); Red Cell Distribution Width 14.4 % (11.5-17.5); White Blood Count 2.6 K/mm3 (4.8-10.8)
--- NOTE | 2019-03-17 07:59 | Progress Note ---
Internal Medicine - PN: Subj *Date: 03/17/19 *Time: 07:57 Interval history: Patient reports her day and evening went relatively well until approximately 2 AM at which point she developed diarrhea and estimates she went to the bathroom hourly. She has not had any fevers or chills. Yesterday she was able to ambulate with minimal dyspnea. She was restarted on buspirone last night and denies any side effects Exam Vital signs and Labs for Last 24 Hours: Temp Pulse Resp BP Pulse Ox 97.9 F 78 18 118/68 97 03/17/19 07:50 03/17/19 07:50 03/17/19 07:50 03/17/19 07:50 03/17/19 07:50 Laboratory Results - last 24 hr 03/17/19 06:56: WBC 2.6 L D, RBC 3.71 L, Hgb 10.5 L, Hct 33.3 L, MCV 89.9, MCH 28.3, MCHC 31.5 L, RDW 14.4, Plt Count 202, MPV 7.9, Neut % (Auto) 85.7 H, Lymph % (Auto) 6.3 L, [place] % (Auto) 7.9, Eos % (Auto) 0.0 L, Baso % (Auto) 0.0 L, Neut # (Auto) 2.2, Lymph # (Auto) 0.2 L, [place] # (Auto) 0.2, Eos # (Auto) 0.0, Baso # (Auto) 0.0 I & O for Last 24 hours: Intake & Output 03/14/19 03/15/19 03/16/19 03/17/19 11:59 11:59 11:59 11:59 Intake Total 5665 / 5665 1341 / 1341 630 / 630 240 / 240 Output Total 2800 / 2800 550 / 550 400 / 400 Balance 5665 / 5665 -1459 / -1459 80 / 80 -160 / -160 Weight 137 lb 133 lb 6 oz 135 lb 2 oz 134 lb 3 oz - Constitutional no acute distress - *Routine Respiratory Exam Comments: Expiratory wheezes anteriorly. Diminished breath sounds right base otherwise good air movement - *Routine Cardiovascular Exam Present: RRR, Normal S1, Normal S2 Assessment and Plan (1) Mycoplasma pneumonia Current visit: No Status: Acute Category: Medical Code(s): J15.7 - Pneumonia due to Mycoplasma pneumoniae (2) Pulmonary fibrosis Current visit: No Status: Chronic Category: Medical Code(s): J84.10 - Pulmonary fibrosis, unspecified (3) Appetite loss Current visit: No Status: Acute Category: Medical Code(s): R63.0 - Anorexia (4) Hyperlipidemia Current visit: No Status: Acute Qualifiers: Hyperlipidemia type: unspecified Qualified Code(s): E78.5 - Hyperlipidemia, unspecified Category: Medical Code(s): E78.5 - Hyperlipidemia, unspecified (5) Sarcoidosis Current visit: No Status: Chronic Category: Medical Code(s): D86.9 - Sarcoidosis, unspecified - Assessment and plan all Dx Assessment and Plan for all problems:: 1. Diarrhea panel to rule out C. difficile 2. PT eval for therapy needs 3. Continue antibiotics and IV steroids. I will decrease IV steroids today.
[2019-03-17 08:23] LABS: Lymphocytes % 5 % (10-50); Monocytes % 4 % (2-9); Neutrophils % 90 % (42-76); Total Cells Counted 100
[2019-03-17 08:24] LABS: RBC Morphology Normal
--- NOTE | 2019-03-17 14:59 | Cardiology Report ---
APPROVED REPORT EXAM: Comprehensive 2D, Doppler, and color-flow Echocardiogram [employer] Concierge: Lianne Haney CRT Ht: 5 ft 3 in Wt: 133lbs BSA: 1.63 BP: 117/62 mmHg Indications: PNEUMONIA, SOB, PLEURAL EFFUSION, SARCOIDOSIS, ASTHMA, R MASTECTOMY, COLON RESECTION, HOME O2 2D Dimensions LVOT 1.40 cm (M/F) 1.5-2.5 M-Mode Dimensions RVDd 2.00 cm (0.9-2.6)LA Diam 2.90 cm (1.9-4.0) LVDd 3.90 cm (3.5-5.7)Ao Diam 2.90 cm (2.0-3.7) LVDs 1.50 cm (3.5-5.7)AV Cusp 1.70 cm (1.5-2.6) IVSd 1.20 cm (0.6-1.1)PWd 0.90 cm (0.6-1.1) EF (Teich) 90.80% FS 61.50% EDV (Teich) 65.90 mLESV (Teich) 6.06 mL LV Diastology E/A Ratio 1.30 Aortic Valve AoV Peak Shravan. 119.00 (50-130 cm/s)AO Peak GR. 6.00 mmHg Mitral Valve MV E Max Shravan. 102.00 (40-130 cm/s)MV A Velocity 76.50 (40-130 cm/s) E/A Ratio 1.30 Pulmonary Valve LA End VMAX 185.00 cm/s PA Accel Time 137.00 (>120 msec) Tricuspid Valve TR P. [id number] cm/sRAP Estimate 10.00 mmHg RVSP 41.00 mmHg Left Ventricle Left atrium is mildly enlarged, left ventricle is normal size, mild concentric left ventricular hypertrophy, visually estimated ejection fraction 55% with no regional wall motion abnormality. Diastolic parameters are inconclusive. Right Ventricle Right atrium right ventricle mildly enlarged with normal contractility. Aortic Valve Aortic valve is minimally thickened and fibrosed. There is no aortic stenosis or aortic insufficiency. Mitral Valve Mitral valve is grossly normal, there is no mitral regurgitation. Tricuspid Valve Tricuspid valve is grossly normal, there is mild tricuspid regurgitation. Tricuspid regurgitation jet velocity is inadequate for calculation of the right ventricular systolic pressure. Pulmonic Valve Pulmonic valve is poorly visualized. Great Vessels Aortic root is normal size. Pericardium No significant pericardial effusion noted. Conclusion 1. Mildly enlarged left atrium, normal left ventricular size, mild concentric left ventricular hypertrophy, visually estimated ejection fraction 55% with no regional wall motion abnormality, diastolic parameters are inconclusive. 2. Mildly enlarged right ventricle with normal contractility. 3. Mild mitral and tricuspid regurgitation. 4. No significant pericardial effusion noted. Electronically signed by : Pete Esposito, 03/17/2019 14:58:39
--- NOTE | 2019-03-18 08:42 | Progress Note ---
Internal Medicine - PN: Subj *Date: 03/18/19 *Time: 08:40 Interval history: Patient has no complaints this morning. She ambulated with physical therapy yesterday and reports that she did not get short of breath. She is using incentive spirometry and denies that it is triggering any cough. She continues to have diarrhea. I diarrhea panel ruled out infectious cause. Exam Vital signs and Labs for Last 24 Hours: Temp Pulse Resp BP Pulse Ox 97.8 F 71 16 130/62 98 03/18/19 03:40 03/18/19 03:40 03/18/19 03:40 03/18/19 03:40 03/18/19 03:40 Laboratory Results - last 24 hr 03/17/19 08:19: Stl Aeromonas (PCR) Not detected, Stl C. cayetanensis PCR Not detected, Stool Rotavirus (PCR) Not detected, Stl Adenov F 40/41 PCR Not detected, Stool Astrovirus (PCR) Not detected, Stool Campylobacter PCR Not detected, Stl C.difficile Tox PCR Not detected, Stool Cryptosporidium PCR Not detected, Stl E.coli Shiga Tox PCR Not detected, Stool E coli O157 PCR Not detected, Stl Enterotoxigenic E PCR Not detected, Stool EPEC (PCR) Not detected, Stool EAEC (PCR) Not detected, Stl E. histolytica PCR Not detected, Stool Giardia Lamblia PCR Not detected, Stool Salmonella PCR Not detected, Stool Sapovirus (PCR) Not detected, Stl P. shigelloides PCR Not detected, Stl Shigella/EIEC PCR Not detected, St Y.enterocolitica PCR Not detected, Stool Vibrio (PCR) Not detected, Stl Vibrio cholerae PCR Not detected, Stl Norovirus GI/GII PCR Not detected I & O for Last 24 hours: Intake & Output 03/15/19 03/16/19 03/17/19 03/18/19 11:59 11:59 11:59 11:59 Intake Total 1341 / 1341 630 / 630 480 / 480 240 / 240 Output Total 2800 / 2800 550 / 550 400 / 400 500 / 500 Balance -1459 / -1459 80 / 80 80 / 80 -260 / -260 Weight 133 lb 6 oz 135 lb 2 oz 134 lb 3 oz 136 lb 11.2 oz Narrative: Patient appears comfortable although respiratory rate seems to increase as we discussed her care. Lung exam is unchanged with good aeration, diminished breath sounds at the right base but no wheezing this morning. Heart has a regular rate and rhythm. Assessment and Plan (1) Mycoplasma pneumonia Current visit: No Status: Acute Category: Medical Code(s): J15.7 - Pneumonia due to Mycoplasma pneumoniae (2) Pulmonary fibrosis Current visit: No Status: Chronic Category: Medical Code(s): J84.10 - Pulmonary fibrosis, unspecified (3) Appetite loss Current visit: No Status: Acute Category: Medical Code(s): R63.0 - Anorexia (4) Hyperlipidemia Current visit: No Status: Acute Qualifiers: Hyperlipidemia type: unspecified Qualified Code(s): E78.5 - Hyperlipidemia, unspecified Category: Medical Code(s): E78.5 - Hyperlipidemia, unspecified (5) Sarcoidosis Current visit: No Status: Chronic Category: Medical Code(s): D86.9 - Sarcoidosis, unspecified - Assessment and plan all Dx Assessment and Plan for all problems:: 1. Patient has now been on antibiotics for the last 18 days for her mycoplasma pneumonia. I do believe this is an adequate course even though she has a depressed immune system. Levaquin will be discontinued and patient will be monitored for recurrence of fevers. I do believe Levaquin is also causing her diarrhea. 2. Probiotic will be ordered for diarrhea 3. Continue IV steroids. I will decrease the dose this morning 4. Encourage patient to ambulate and continue to use incentive spirometry.
--- NOTE | 2019-03-19 07:33 | Progress Note ---
Internal Medicine - PN: Subj *Date: 03/19/19 *Time: 07:32 Interval history: Patient has no complaints this morning. She did not have any fevers over the last 24 hours. Dyspnea on exertion remained stable. She denies cough. She is agreeable to home health at discharge for nursing and physical therapy needs Exam Vital signs and Labs for Last 24 Hours: Temp Pulse Resp BP Pulse Ox 98.4 F 76 18 134/61 98 03/19/19 04:00 03/19/19 04:00 03/19/19 04:00 03/19/19 04:00 03/19/19 04:00 I & O for Last 24 hours: Intake & Output 03/16/19 03/17/19 03/18/19 03/19/19 11:59 11:59 11:59 11:59 Intake Total 630 / 630 480 / 480 600 / 600 742 / 742 Output Total 550 / 550 400 / 400 500 / 500 700 / 700 Balance 80 / 80 80 / 80 100 / 100 42 / 42 Weight 135 lb 2 oz 134 lb 3 oz 136 lb 11.2 oz 134 lb 5 oz Microbiology Reports for the Last 24 Hours: Microbiology 03/13/19 11:10 Blood Blood Culture - Final NO GROWTH AFTER 5 DAYS 03/13/19 11:10 Blood Blood Culture - Final NO GROWTH AFTER 5 DAYS Narrative: Patient looks well and comfortable. She shows no signs of respiratory distress. Lungs are overall clear with diminished breath sound at the right base where her pleural effusion is. Heart has a regular rate and rhythm. Abdomen is soft Assessment and Plan (1) Mycoplasma pneumonia Current visit: No Status: Acute Category: Medical Code(s): J15.7 - Pneumonia due to Mycoplasma pneumoniae (2) Pulmonary fibrosis Current visit: No Status: Chronic Category: Medical Code(s): J84.10 - Pulmonary fibrosis, unspecified (3) Appetite loss Current visit: No Status: Acute Category: Medical Code(s): R63.0 - Anorexia (4) Hyperlipidemia Current visit: No Status: Acute Qualifiers: Hyperlipidemia type: unspecified Qualified Code(s): E78.5 - Hyperlipidemia, unspecified Category: Medical Code(s): E78.5 - Hyperlipidemia, unspecified (5) Sarcoidosis Current visit: No Status: Chronic Category: Medical Code(s): D86.9 - Sarcoidosis, unspecified - Assessment and plan all Dx Assessment and Plan for all problems:: 1. Continue to ambulate to assess dyspnea 2. Monitor for fevers 3. If no fevers or setbacks within the next 24 hours patient will be discharged to home tomorrow
--- NOTE | 2019-03-20 17:36 | Discharge Summary ---
General - General Admission date:: 03/13/19 Discharge date: 03/20/19 HPI HPI: 68-year-old female with stage IV sarcoidosis was seen in the office today for follow-up of hospitalization at this facility that occurred from February 27 through March 04 when patient was treated for mycoplasma pneumonia of the right lung. Since patient's discharge from hospital on March 04 she had returned to the office in the interim with complaints of worsening shortness of breath, fevers and poor appetite. On that evaluation in the office patient's lung exam was similar to the day of discharge from the hospital. It was felt she had likely contracted a viral illness. She was hypoxic in the office. She was placed on supplemental oxygen and the patient was started on levofloxacin. She returned today to the office for her originally intended hospital follow-up. She had improved very little compared to March 09. She remains short of breath and tachypneic. In the office her respiratory rate was 26 breaths/min and she was tachycardic with a pulse rate of 130. She was afebrile in the office and had been afebrile for the last 48 hours. Her lung exam was significant only for diminished breath sounds in the base consistent with a previously identified right pleural effusion. Patient also appeared dehydrated and had reported inability to consume significant quantities of fluids due to extreme nausea and episodes of retching or vomiting that would occur. Decision was made to readmit the patient to start broad-spectrum antibiotics, repeat chest x-ray as well as a CT scan, rule out pulmonary embolism. Hospital Course Hospital Course: Patient was admitted to the hospital with diagnosis of recurrence of pneumonia on top of her pulmonary sarcoidosis. Patient was admitted and placed on broad-spectrum antibiotics of cefepime, Levaquin, vancomycin. Patient met sepsis criteria so on admission was given a fluid bolus. On room air patient was hypoxic and tachypneic. The following morning the patient remained quite dyspneic. Concern was raised over possible fluid overload so patient was diuresed with IV Lasix. With intravenous Lasix patient put out over 2 L of urine and tachypnea improved. Patient was continued on broad-spectrum antibiotics. Because of the patient's tachypnea that had been present on admission and persisted over the initial hospitalization a CT scan with PE protocol was ordered. This ruled out pulmonary embolism. In addition her pulmonary embolism patient had a known right pleural effusion that had actually decreased in size. Patient's CT scan was compared to multiple prior CT scans and showed very little change in what was believed to be the pneumonia the patient was having. However because the patient had been off her azathioprine for over 1 month and had not had a Remicade infusion for her sarcoidosis in the last 2 months treatment was turned to focusing on the sarcoidosis. Patient was started on high-dose intravenous Solu-Medrol. Patient noted improvement in dyspnea with the addition of the Solu-Medrol. As patient stabilized Solu-Medrol was weaned daily and antibiotics were discontinued gradually. First the cefepime was discontinued, then vancomycin. Patient remained on Levaquin until 48 hours prior to discharge. Patient had not had a fever during hospitalization and because I believed that the sarcoidosis was the reason for the patient's pulmonary difficulties decision was made to discontinue Levaquin altogether and further observe the patient. During this time she had no worsening of her dyspnea and no fevers. Blood cultures performed on admission were negative. At discharge patient will continue high-dose steroid taper beginning at 50 mg and decreasing her dose by 5 mg every 5 days. Discussion was had with the patient about treatment of her sarcoidosis. She had been seeing a physician in [place] but would prefer not to go back to him. Office will make efforts to find a closer option. I did recommend she also follow-up with her social human services assistants who was prescribing her azathioprine and Remicade. Patient developed diarrhea during hospitalization and a diarrhea panel was negative for any infection. Objective Vital signs: Temp Pulse Resp BP Pulse Ox 98.6 F 70 16 140/65 98 03/20/19 08:00 03/20/19 08:00 03/20/19 08:00 03/20/19 08:00 03/20/19 08:01 DS: Diagnosis - Discharge Diagnosis (1) Mycoplasma pneumonia Status: Acute (2) Pulmonary fibrosis Status: Chronic (3) Appetite loss Status: Acute (4) Hyperlipidemia Status: Acute (5) Sarcoidosis Status: Chronic Discharge Plan - Patient Discharge Instructions ACTIVITY: Continue current activity Patient Instructions: DI for Pneumonia -- Adult - Follow up Plan Follow up with: Sergio Ulloa MD [Primary Care Provider] - 03/27/19 1:30 pm Disposition: Home, Self-Skilled Nursing Medications: Home Medications Medication Instructions Recorded Confirmed Type Albuterol Sulfate [Proair Hfa 2 puffs IH Q4HP PRN 04/30/17 03/13/19 History 90mcg/puff Inh] Atorvastatin Calcium [Atorvastatin 20 mg PO HS 04/30/17 03/13/19 History 20mg Tab] Montelukast Sodium [Montelukast 10 mg PO HS 04/30/17 03/13/19 History 10mg Tab] Omeprazole [Omeprazole 20mg 40 mg PO DAILY 04/30/17 03/13/19 History Capsule] calcium citrate 200 mg (950 mg) 600 mg PO BID tab 08/27/17 03/13/19 History tablet Ondansetron [Zofran 4mg ODT] 4 mg PO TIDP PRN #10 tab.rapdis 02/26/19 03/13/19 Rx L.acidoph,Paracasei, B.lactis 1 each PO DAILY 03/13/19 03/13/19 History [Probiotic] Loratadine [Claritin 10mg Tablet] 10 mg PO DAILY 03/13/19 03/13/19 History Buspirone HCl [Buspar 10mg 0.5 tab PO HS #0 03/20/19 03/13/19 Rx tablet] predniSONE [Deltasone 10mg tablet] 5 tab PO DAILY #50 tab 03/20/19 Rx Prescriptions/Medication Reconciliation: New predniSONE [Deltasone 10mg tablet] 5 tab PO DAILY #50 tab Continued calcium citrate 200 mg (950 mg) tablet 600 mg PO BID tab Albuterol Sulfate [Proair Hfa 90mcg/puff Inh] 2 puffs IH Q4HP PRN PRN Reason: Shortness Of Breath Or Wheezing Montelukast Sodium [Montelukast 10mg Tab] 10 mg PO HS Omeprazole [Omeprazole 20mg Capsule] 40 mg PO DAILY Atorvastatin Calcium [Atorvastatin 20mg Tab] 20 mg PO HS L.acidoph,Paracasei, B.lactis [Probiotic] 1 each PO DAILY Loratadine [Claritin 10mg Tablet] 10 mg PO DAILY Ondansetron [Zofran 4mg ODT] 4 mg PO TIDP PRN #10 tab.rapdis PRN Reason: Nausea And Vomiting Changed Buspirone HCl [Buspar 10mg tablet] 0.5 tab PO HS #0 Discontinued azathioprine 50 mg tablet 50 mg PO BID 30 Days #60 tab Amlodipine Besylate [Amlodipine 10mg Tab] 10 mg PO DAILY Alendronate Sodium [Fosamax 70mg Tablet] 70 mg PO WEEKLY levoFLOXacin [Levofloxacin 750MG Tablet] 750 mg PO DAILY Infliximab [Remicade 100mg vial] 0 mg IV .EVERY 8 WEEKS predniSONE [Deltasone 20mg tablet] 20 mg PO DAILY - Problem Reconciliation Problems Reviewed?: Yes
== END 2019-03-20 08:47 | disposition home or self-care (01) | DRG 196 ==
LOC: 2ND → OBSVTOIN 10:15 → 2ND 12:47
PROVIDERS: ADMIT Family Medicine; ATTEND Family Medicine
CPT/HCPCS: 36415; 71020; 71046; 71270; 71275; 80048; 80202; 82803; 83605; 83880; 84484; 85007; 85025; 86738; 87040; 87507; 93005; 93306; 94640; 94761; 97116; 97161; 97166; 97535; J1956; J2405; J2543; J3370; Q9967; S0119

== ENCOUNTER → 2019-03-30 10:02 | Outpatient (POV) | payer MEDICARE, OTHER, SELFPAY | PROVIDERS: Visit Provider Nurse Practitioner Family | DX: Z00.00 Encounter for general adult medical examination without abnormal findings (principal) ==